=== PATIENT | female | born 1930 | race Caucasian/White ===

== ENCOUNTER 2020-08-14 19:24 | Inpatient (IN) ==
--- NOTE | 2020-08-14 19:35 | Emergency Department Note ---
Lower Extremity Injury HPI General Chief Complaint: Extremity Injury, Lower Stated Complaint: hip fracture History of Present Illness HPI Narrative: Narrative: Related Data Allergies Allergy/AdvReac Type Severity Reaction Status Date / Time Penicillins Allergy Unknown Verified 08/14/20 19:27 Sulfa (Sulfonamide Allergy Unknown Verified 08/14/20 19:27 Antibiotics) tetracycline Allergy Unknown Verified 08/14/20 19:27 morphine AdvReac Intermediate Nausea Verified 08/14/20 19:27 Review of Systems ROS ROS Narrative: Narrative: PFSH Narrative Patient History Narrative: Narrative: 89-year-old female presents the emergency department complaining of a left hip fracture. Patient does have a left femoral neck fracture which is displaced. Patient was seen at [facility] and then transferred here has been accepted by the orthopedic surgeon as well as the hospitalist but patient needs to get seen here because it was a trauma. Apparently the patient fell 7 days ago and is complaining of left hip pain. She is on a blood thinners. Does have history of aortic stenosis as well as hypertension is well controlled. Otherwise patient says that the pain is currently a 3 out of 10 worse with movement #pain all located to the hip. She did not hit her head did not lose consciousness during the fall. Medical/Surgical/Family History All Active Problems (Updated 08/14/20 @ 19:35 by Jose Partida DO) Fracture of femur (Acute) Exam Narrative Narrative: Narrative: Vital signs noted General: Awake. Alert. No distress. Skin: Warm. Dry. No rash. HEENT: NCAT. PERRL. EOMI. No conjunctivitis. No nystagmus. No pharyngitis. Membranes moist. No otitis. No rhinitis. Neck: No PTP. Good ROM. No meningeal signs. No stridor. No thyromegaly. No JVD. Cardiovascular: RRR. No murmur. No rubs. No gallops. Respiratory: No respiratory distress. Breath sounds equal. Lungs clear. Gastrointestinal: Abdomen soft. No tenderness. No distention. Normal bowel sounds. No palpable organomegaly or masses. Back: No deformity. No CVAT. Musculoskeletal: No tenderness. No swelling. No erythema. No edema. Good peripheral pulses x 4. Left lower extremity is externally rotated and shortened. Does have good pedal pulses. Does have decreased movement and range of motion secondary to the left hip fracture and pain. There is pain while palpating the left greater trochanter of the femur. Lymphatic: No palpable adenopathy. Neurological: No focal neurological deficits observed. CN 2-12 are intact. Good FTN. No pronator drift. Course Vital Signs Vital signs: Vital Signs Temperature 98.2 F 08/14/20 19:27 Pulse Rate 58 L 08/14/20 19:27 Respiratory Rate 18 08/14/20 19:27 Blood Pressure 176/81 08/14/20 19:27 Pulse Oximetry (%) 98 08/14/20 19:27 Temperature 98.2 F 08/14/20 19:27 Pulse Rate 58 L 08/14/20 19:27 Respiratory Rate 18 08/14/20 19:27 Blood Pressure 176/81 08/14/20 19:27 Pulse Oximetry (%) 98 08/14/20 19:27 MDM MDM Narrative Medical decision making narrative: Narrative: Based on CAT scan patient does have a left femoral neck fracture it is displaced. Patient does have good pedal pulses in the left lower extremity and good sensation does have full range of motion of the feet and knee. Patient pain is fairly under control at this time. They did do CBC and a BMP which is normal at the outside facility. I will add a PT/INR, chest x-ray EKG for presu rgical labs. Patient is planned to go to the OR tomorrow. I spoke with Dr. Cruz who agreed to admit the patient to the hospitalist service. Patient admitted in stable condition. Discharge Plan Patient/Caregiver Discharge Instructions Pt seen by VICE PRESIDENT PAYMENT/PA only: No Clinical Impression: Fracture of femur Qualifiers: Encounter type: initial encounter Femur location: base of neck Fracture type: closed Fracture alignment: displaced Laterality: left Qualified Code(s): S72.042A - Displaced fracture of base of neck of left femur, initial encounter for closed fracture Patient Disposition: Xfer As Inpt ([facility]) Condition: Good Follow up with: Mian Richmond PA-C [Primary Care Provider] -
[2020-08-14] MEDS ORDERED: fentaNYL 100 MCG/2 ML VIAL IV ONE (20:18)
[2020-08-14] MEDS ORDERED: ACETAMINOPHEN 325 MG TABLET PO PRN (20:28)
[2020-08-14] MEDS ORDERED: HYDROcodone/APAP 5/325MG TABLET PO PRN (20:28)
[2020-08-14] MEDS ORDERED: morphine 4 MG/ML VIAL IV PRN (20:28)
[2020-08-14] MEDS ORDERED: hydrALAZINE 20 MG/ML VIAL IV PRN (20:34)
--- NOTE | 2020-08-14 20:40 | Internal Med History&Physical ---
HPI History of Present Illness Patient information: Note initiated : 08/14/20 at 8:39 pm Service Date, if different from initiated Date: [] Patient: Rosaline Stuart 89 y/o F admitted on for hip fracture. Chief Complaint: [] History of present illness: Ms. Stuart is a 89 year old F with a past medical history of high blood pressure and history of aortic stenosis who was transferred to the ER from [facility] due to left leg pain. As per patient, who had a mechanical fall at home 6 days ago. He denies loss of consciousness. He did not have injury to her head. Denies nausea, vomiting, or headache at that time. Since the fall, she started to feel left hip pain. X- ray showed left femoral neck fracture it is displaced. When I saw this patient in the ER, she denied headache, dizziness, chest pain, shortness of breath, nausea, vomiting, abdominal pain, or dysuria. No change in vision. Review of Systems Review of systems: Positive for left hip pain. All other systems were reviewed and negative. PFSH PFSH All Active Problems Fracture of femur (Acute) Social History smoking status: Never smoker MEDS/ALLERGIES Home Medications and Allergies Home Medications Medication Instructions Recorded Confirmed Type amlodipine 5 mg PO QDAY 08/14/20 08/14/20 History ascorbic acid (vitamin C) 1 tab PO QDAY 08/14/20 08/14/20 History lisinopril 20 mg PO BID 08/14/20 08/14/20 History Allergies Allergy/AdvReac Type Severity Reaction Status Date / Time Penicillins Allergy Unknown Verified 08/14/20 19:27 Sulfa (Sulfonamide Allergy Unknown Verified 08/14/20 19:27 Antibiotics) tetracycline Allergy Unknown Verified 08/14/20 19:27 morphine AdvReac Intermediate Nausea Verified 08/14/20 19:27 EXAM Constitutional Vitals: Temp Pulse Resp BP Pulse Ox 98.2 F 61 18 160/86 100 08/14/20 19:27 08/14/20 20:17 08/14/20 19:27 08/14/20 20:17 08/14/20 20:17 Additional findings Additional findings: Physical exam: General: No acute distress Eye: EMOI, no conjunctival injection. HEENT: supple, no JVD or thyroid megaly Chest: No tenderness Heart: RRR, no gallop Lungs: Rhonchi bilateral Abdomen: Normal bowel sounds, soft, no tenderness Extremities: Left hip tenderness. Left lower extremity is externally rotated and shortened. Pulses symmetrical. Neurology: A+O x 3, no focal neurological deficits Psych: Normal mood DATA Data Completed and Pending Labs: Labs from last 24 hours 08/14/20 19:44 PT Pending INR Pending A/P Narrative A/P Narrative: Assessment: 1. fracture of left femur 2. HTN, uncontrolled 3. Mechanical fall at ground level 4. Hx of aortic stenosis Plan: 1. left femoral neck fracture it is displaced Orth consult NPO after midnight. She may have a procedure tomorrow 2. Continue home medication for blood pressure. Hydralazine as needed 3. Since patient had a mechanical fall. Denies loss of consciousness. No focal neurologic deficits. I would not like to order CT of head. Monitor 4. DVT prophylaxis: Heparin 5. CODE STATUS: Steel Fabricating Supervisor Spent With Patient Time: Total time spent is greater than 50% in coordination of care (as documented) at patient's floor/unit and/or counseling patient:
--- NOTE | 2020-08-14 20:50 | Event Note ---
Event Note Event Note: Parties in Attendance: Patient Pt's decisional Capacity: Yes POLST form completed: not I explained the process regarding CPR and intubation in details to the patient who agreed with CRP and intubation.
[2020-08-14 21:06] LABS: Prothrombin Time 13.4 sec (11.9-14.5)
[2020-08-14] MEDS ORDERED: HYDROmorphone 0.5 MG/0.5 ML SYRINGE IV PRN (21:16)
[2020-08-14] MEDS: 0.9 % SODIUM CHLORIDE 1,000 ML IV SCH (21:24)
[2020-08-14] MEDS: LISINOPRIL 20 MG TABLET PO SCH (22:23)
[2020-08-14] MEDS: DOCUSATE SODIUM 100 MG CAPSULE PO SCH (22:23)
[2020-08-14] MEDS: HEPARIN 5,000 UNIT/ML VIAL SQ SCH (22:26)
[2020-08-14] MEDS: 0.9 % SODIUM CHLORIDE 10 ML SYRINGE IV SCH (22:26)
[2020-08-14] MEDS: PROCHLORPERAZINE 10 MG/2 ML VIAL IV PRN (22:49)
[2020-08-15] MEDS ORDERED: HYDROmorphone 1 MG/ML SYRINGE IV PRN (00:37)
[2020-08-15] MEDS ORDERED: HYDROmorphone 1 MG/ML SYRINGE ONE ×2 (00:47→05:20)
--- NOTE | 2020-08-15 04:10 | XRay Report ---
CLINICAL INFORMATION: Chest pain COMPARISON: None. FINDINGS: Cardiomediastinal silhouette and pulmonary vessels are normal. Mild chronic bronchitis changes noted: there are no infiltrates or effusions. Severe degenerative changes in both acromioclavicular and glenohumeral joints incidentally noted. IMPRESSION: Chronic bronchitis. No acute findings Interpreted and Authenticated by: Sukhi May 08/15/20
[2020-08-15] MEDS: 0.9 % SODIUM CHLORIDE 10 ML SYRINGE IV SCH ×3 (05:14→20:45)
[2020-08-15] MEDS: PROCHLORPERAZINE 10 MG/2 ML VIAL IV PRN (06:17)
[2020-08-15] MEDS ORDERED: IPRATROPIUM/ALBUTEROL 3 ML AMPUL.NEB NEB PRN ×2 (07:00→11:29)
[2020-08-15] MEDS ORDERED: SCOPOLAMINE 1 PATCH PATCH TOPICAL PRN (07:00)
[2020-08-15 08:04] LABS: Basophils # (Auto) 0.02 K/mcL (0.00-0.20); Basophils % (Auto) 0.3 % (0.0-2.0); Eosinophils # (Auto) 0.01 K/mcL (0.00-0.70); Eosinophils % (Auto) 0.1 % (0.0-7.0); Hematocrit 38.6 % (36.0-48.0); Hemoglobin 12.4 g/dL (12.0-15.0); Lymphocytes # (Auto) 0.58 K/mcL (1.50-4.80); Lymphocytes % (Auto) 7.5 % (15.0-49.0); Mean Corpuscular HGB Conc 32.1 g/dL (31.0-36.0); Mean Platelet Volume 9.3 fL (7.4-10.4); Monocytes # (Auto) 0.49 K/mcL (0.10-0.90); Monocytes % (Auto) 6.4 % (1.0-12.0); Neutrophils % (Auto) 85.7 % (38.0-78.0); Platelet Count 291 K/mcL (140-440); RBC 4.24 M/mcL (4.00-5.20); Red Cell Distribution Width 13.6 % (11.5-14.5); WBC 7.7 K/mcL (4.5-11.0)
[2020-08-15 08:27] LABS: Blood Urea Nitrogen 19 mg/dL (8-23); Calcium 8.7 mg/dL (8.6-10.4); Carbon Dioxide 27 mmol/L (22-30); Chloride 97 mmol/L (96-108); Glomerular Filtration Rate 77; Glucose 143 mg/dL (70-105)
[2020-08-15] MEDS ORDERED: amLODIPine 5 MG TABLET PO SCH (09:00)
[2020-08-15] MEDS: amLODIPine 5 MG TABLET PO SCH (09:01)
[2020-08-15] MEDS: LISINOPRIL 20 MG TABLET PO SCH ×2 (09:01→20:38)
[2020-08-15] MEDS: HEPARIN 5,000 UNIT/ML VIAL SQ SCH ×2 (09:01→20:42)
[2020-08-15] MEDS: DOCUSATE SODIUM 100 MG CAPSULE PO SCH ×2 (09:01→20:38)
[2020-08-15] MEDS ORDERED: ceFAZolin 2 GM in DEXTROSE 5% IN WATER 50 ML IV SCH (09:45)
--- NOTE | 2020-08-15 10:07 | Brief Operative Note ---
Brief Operative Note Date of procedure: 08/15/20 Pre-op diagnosis: Left femoral neck fracture Post-op diagnosis: same Procedure: Left hip bipolar arthroplasty Grafts/Implants: Yes Findings: Femoral neck fracture, basicervical Complications: none Surgeon: Jake Sales Salvage Engineer: Brett Oliver Estimated blood loss (cc): 250 Specimens Removed/Pathology: none sent Condition: stable Disposition: PACU
[2020-08-15] MEDS ORDERED: PHENYLEPHRINE 10 MG/ML VIAL ONE (10:20)
[2020-08-15] MEDS ORDERED: DEXAMETHASONE 10 MG/ML VIAL ONE (10:20)
[2020-08-15] MEDS ORDERED: GLYCOPYRROLATE 0.2 MG/ML VIAL IV ONE (10:20)
[2020-08-15] MEDS ORDERED: TRANEXAMIC ACID 1,000 MG/10 ML VIAL IV ONE (10:20)
[2020-08-15] MEDS ORDERED: LIDOCAINE HCL/PF 100 MG/5 ML SYRINGE IV ONE (10:20)
[2020-08-15] MEDS ORDERED: ONDANSETRON 4 MG/2 ML VIAL ONE (10:20)
[2020-08-15] MEDS ORDERED: KETAMINE 100 MG/ML ML ONE (10:20)
[2020-08-15] MEDS ORDERED: PROPOFOL 200 MG/20 ML VIAL IV ONE (10:20)
[2020-08-15] MEDS ORDERED: ePHEDrine 50 MG/ML AMPUL IV ONE (10:20)
--- NOTE | 2020-08-15 10:22 | Operative Note ---
Operative Note Operative Note: Pre-operative diagnosis: Left hip fracture, low femoral neck I would like checking for room to see if there her position to be useful surgery beanbag postoperative diagnosis: Same Procedure: Left hip hemiarthroplasty Implants:Actis bipolar, 5 standard stem, 28/44mm head+5 Findings: basicervical extending partially into GT and medial calcar Complications: intraoperative GT FX Estimated Blood loss:200 Assist:Brett Jean Baptiste Clinical note: The patient continues to suffer from the above mentioned diagnosis. She had a fall and then was unable to ambulate. CT scan performed in the emergency department revealed a left femoral neck fracture. H&P: The patient was met outside the operating room and symptoms were reviewed and a physical exam performed. The patient demonstrated ongoing symptoms and signs as previously discussed. Risk versus benefits of the procedure were again discussed. Patient wished to proceed with the surgery aware and understanding of these risks. The operative site was marked. Patient was brought into the operating room and positioned in the usual fashion lateral with all bony prominences padded. Incision was made directly over the GT extending proximally and distally by approximately 10 cm. Incision was carried down through skin and then through IT band. Next the abductors were lifted in the usual 1/3-2/3 split fashion. Next the capsule was split. This revealed the fractured femoral head and neck in the acetabulum. The proximal aspect of the femur was then exposed using Hohmann retractors. During exposure a fracture occurred in the GT. It was felt this could be repaired satisfactorily at closure with a heavy FiberWire suture and therefore it was left for the time being. The remainder of neck was removed with an oscillating saw. Proximal aspect of the femur was opened a box osteotome. We then sequentially broached larger sizes until good fit within the femoral canal was achieved with the size noted above. A trial reduction was performed with a trial head. This reduced easily, provided equal leg lengths as measured on the knees through the drape, and was stable in flexion abduction and extension and external rotation. The trial was then dislocated. The wound and canal were thoroughly irrigated. The trial was exchanged with a definitive component. Again the hip was reduced. Stability and tension was again checked and found to be satisfactory, confirming that the hip did not dislocate in the legs leg lengths were equal. We then repaired the GT fracture using a tension band technique and #5 FiberWire sutures. The needle was passed through bone allowing good approximation and a solid repair of the GT fracture. The capsule was then closed with a #2 FiberWire. The abductors were repaired as well to the remaining cuff tendon on the femur. A sterile dressing was applied. The patient was brought to the PACU in good condition. Dressing can be changed to aquacel when dry and removed in 7 days. F/u 10-[address] Sales for wound check and suture removal. I will ask her to limit WB to 50% and avoid active abduction until follow.
[2020-08-15] MEDS ORDERED: GENTAMICIN SULFATE 800 MG/20 ML VIAL IR ONE (10:45)
[2020-08-15] MEDS ORDERED: LABETALOL 5 MG/ML ML IV PRN (11:29)
[2020-08-15] MEDS ORDERED: METHOCARBAMOL 1,000 MG/10 ML VIAL IV PRN (11:29)
[2020-08-15] MEDS ORDERED: fentaNYL 100 MCG/2 ML VIAL IV PRN (11:29)
[2020-08-15] MEDS ORDERED: NALOXONE HCL 0.4 MG/ML VIAL IV PRN (11:29)
[2020-08-15] MEDS ORDERED: METOPROLOL TARTRATE 5 MG/5 ML VIAL IV PRN (11:29)
[2020-08-15] MEDS ORDERED: LACTATED RINGERS 250 ML IV PRN (11:29)
[2020-08-15] MEDS ORDERED: ACETAMINOPHEN 700 MG/70 ML BAG IV ONE (11:29)
[2020-08-15] MEDS ORDERED: LACTATED RINGERS 1,000 ML IV SCH (11:30)
[2020-08-15] MEDS ORDERED: BENZOCAINE/MENTHOL 1 LOZENGE PO PRN (11:51)
[2020-08-15] MEDS ORDERED: ONDANSETRON 4 MG/2 ML VIAL IV PRN (11:51)
[2020-08-15] MEDS ORDERED: POLYETHYLENE GLYCOL 3350 17 GM PACKET PO PRN (11:51)
[2020-08-15] MEDS ORDERED: FLEETS ADULT ENEMA PR PRN (11:51)
[2020-08-15] MEDS ORDERED: BISACODYL 10 MG SUPP.RECT PR PRN (11:51)
[2020-08-15] MEDS ORDERED: MAGNESIUM HYDROXIDE 30 ML ORAL.SUSP PO PRN (11:51)
--- NOTE | 2020-08-15 11:51 | Brief Operative Note ---
Brief Operative Note Date of procedure: 08/15/20 Pre-op diagnosis: Left femoral neck fx Post-op diagnosis: same Procedure: Left hip mar arthroplasty Grafts/Implants: Yes Anesthesia: GETA Findings: Fx extended into GT and near LT Complications: other Complications Description: GT fracture fixed with heavy fiberwire in tension band technique Surgeon: Jake Sales Refinery Operator Helper Cracking Unit: Brett Oliver Estimated blood loss (cc): 200 Specimens Removed/Pathology: none sent Condition: stable Disposition: PACU
[2020-08-15] MEDS ORDERED: IBUPROFEN 200 MG TABLET PO PRN (12:20)
--- NOTE | 2020-08-15 12:25 | XRay Report ---
CLINICAL INFORMATION: Post-Op Total Hip COMPARISON: None. FINDINGS: Left hip prostheses is anatomically aligned. No osseous abnormalities. Older right total hip prostheses is anatomically aligned without loosening or infection. IMPRESSION: Left hip prostheses is anatomically aligned Interpreted and Authenticated by: Sukhi May 08/15/20
[2020-08-15] MEDS: 0.9 % SODIUM CHLORIDE 1,000 ML IV SCH ×2 (13:11→15:17)
[2020-08-15] MEDS ORDERED: 0.9 % SODIUM CHLORIDE 10 ML SYRINGE IV SCH (14:00)
[2020-08-15] MEDS: HYDROCODONE/APAP 7.5/325MG TABLET PO PRN ×2 (15:21→20:37)
[2020-08-15] MEDS: ACETAMINOPHEN 325 MG TABLET PO PRN (17:48)
[2020-08-15] MEDS: ceFAZolin 1 GM VIAL IV SCH (17:49)
--- NOTE | 2020-08-15 19:47 | Internal Med Progress Note ---
SUBJECTIVE Subjective Patient information: Note initiated : 08/15/20 at 7:44 pm Service Date, if different from initiated Date: [] Patient: Rosaline Stuart 89 y/o F admitted on 08/14/20 for hip fracture. Chief Complaint: [] Ms. Stuart is a 89 year old F with a past medical history of high blood pressure and history of aortic stenosis who was transferred to the ER from [facility] due to left leg pain. As per patient, who had a mechanical fall at home 6 days ago. He denies loss of consciousness. He did not have injury to her head. Denies nausea, vomiting, or headache at that time. Since the fall, she started to feel left hip pain. X-ray showed left femoral neck fracture it i s displaced. When I saw this patient in the ER, she denied headache, dizziness, chest pain, shortness of breath, nausea, vomiting, abdominal pain, or dysuria. No change in vision. 08/15 Patient does not have any new complaints. Pain is controlled Patient underwent Left hip mar arthroplasty by Dr. Sales on 08/15/20 Review of Systems Review of systems: Positive for left hip pain. All other systems were reviewed and negative. Constitutional Vitals: Vital Signs Temp Pulse Resp BP Pulse Ox 97.4 F 66 16 132/78 99 08/15/20 16:00 08/15/20 16:00 08/15/20 16:00 08/15/20 16:00 08/15/20 16:00 Period Temp Pulse Resp BP Sys/Wren Pulse Ox Last 24 Hr 96.7 F-98.2 F 50-97 8-24 96-171/43-86 94-100 Intake and Output 08/15/20 08/15/20 08/15/20 05:59 13:59 21:59 Intake Total 200 1670 240 Output Total 950 Balance 200 720 240 Weight 46.72 kg 46.72 kg Patient Weight 08/16/20 05:59 Weight 46.72 kg Intake & Output: Intake & Output 08/15/20 08/15/20 08/15/20 05:59 13:59 21:59 Intake Total 200 1670 240 Output Total 950 Balance 200 720 240 Weight 46.72 kg 46.72 kg Intake: IV 70 Oral 200 240 IV - Manual Only 1600 Output: Urine Catheter Amount 400 Void Amount 400 Emesis 50 Estimated Blood Loss 100 Other: Urine Appearance Clear 3-way Urethral Clear Urine Color Bright Yellow 3-way Urethral Pale Additional findings Additional findings: Physical exam: General: No acute distress Eye: EMOI, no conjunctival injection. HEENT: supple, no JVD or thyroid megaly Chest: No tenderness Heart: RRR, no gallop Lungs: Rhonchi bilateral Abdomen: Normal bowel sounds, soft, no tenderness Extremities: Left hip covered by dressing which is dry Neurology: A+O x 3, no focal neurological deficits Psych: Normal mood OBJ DATA Labs CBC & Chem 7: 08/15/20 07:35 08/15/20 07:35 Labs: Abnormal Lab Results 08/15/20 08/15/20 07:35 07:35 Neut % (Auto) 85.7 H Lymph % (Auto) 7.5 L Lymph # (Auto) 0.58 L Glucose 143 H Meds: Medications Acetaminophen (Tylenol) 650 mg PO Q6HP PRN; Protocol PRN Reason: Per Pain Protocol/Fever > 101 Last Admin: 08/15/20 17:48 Dose: 650 mg Documented by: Hydrocodone Bitart/Acetaminophen (Kennedy 7.5/325mg) 1 - 2 tab PO Q4HP PRN; Protocol PRN Reason: Per Pain Protocol Last Admin: 08/15/20 15:21 Dose: 2 tab Documented by: Amlodipine Besylate (Norvasc) 7.5 mg PO QDAY [facility] Last Admin: 08/15/20 09:01 Dose: Not Given Documented by: Bisacodyl (Dulcolax) 10 mg SC Q2-3DAYS PRN PRN Reason: Constipation Cefazolin Sodium (Ancef) 2 gm IV Q8H [facility]; Protocol Stop: 08/16/20 02:01 Last Admin: 08/15/20 17:49 Dose: 2 gm Documented by: Docusate Sodium (Colace) 100 mg PO BID [facility] Last Admin: 08/15/20 09:01 Dose: Not Given Documented by: Heparin Sodium (Porcine) (Heparin) 5,000 unit SQ Q12 [facility] Last Admin: 08/15/20 09:01 Dose: Not Given Documented by: Hydralazine HCl (Apresoline) 10 mg IV Q4-6HP PRN PRN Reason: Hypertension Hydromorphone HCl (Dilaudid) 1 mg IV Q4HP PRN; Protocol PRN Reason: Per Pain Protocol Sodium Chloride (Sodium Chloride 0.9%) 1,000 mls @ 75 mls/hr IV .[id number] [facility] Last Admin: 08/15/20 13:11 Dose: 75 mls/hr Documented by: Ibuprofen (Motrin) 400 mg PO Q6HP PRN; Protocol PRN Reason: Per Pain Protocol Lisinopril (Zestril) 20 mg PO BID [facility] Last Admin: 08/15/20 09:01 Dose: Not Given Documented by: Magnesium Hydroxide (Milk Of Magnesia) 30 ml PO BIDP PRN PRN Reason: Constipation Methocarbamol (Robaxin) 750 mg IV Q6HP PRN PRN Reason: Muscle Spasm Ondansetron HCl (Zofran) 4 mg IV Q4HP PRN; Protocol PRN Reason: Nausea And Vomiting Polyethylene Glycol (Miralax) 17 gm PO DAILYP PRN PRN Reason: Constipation Prochlorperazine (Compazine) 5 mg IV Q6HP PRN PRN Reason: Nausea And Vomiting Last Admin: 08/15/20 06:17 Dose: 5 mg Documented by: Scopolamine (Transderm-Scop) 1 patch TOPICAL PREOP PRN PRN Reason: Nausea And Vomiting Stop: 08/15/20 23:59 Last Admin: 08/15/20 09:01 Dose: 1 patch Documented by: Shona (Senokot) 2 tab PO HS [facility] Sodium Biphosphate/Sodium Phosphate (Fleets Adult) 1 dose SC Q3-4DAYS PRN PRN Reason: Constipation Sodium Chloride (Saline Flush) 10 ml IV Q8 [facility] Last Admin: 08/15/20 14:32 Dose: Not Given Documented by: Temazepam (Restoril) 15 mg PO HSP PRN PRN Reason: Insomnia Throat Lozenges (Cepacol) 1 lozenge PO PRN PRN PRN Reason: Sore Throat A/P Narrative A/P Narrative: 1. fracture of left femur 2. HTN, uncontrolled 3. Mechanical fall at ground level 4. Hx of aortic stenosis Plan: 1. Left hip mar arthroplasty by Dr. Sales on 08/15/20 Postop management including pain control and DVT prophylaxis by Orth team 2. Continue home medication for blood pressure. Hydralazine as needed 3. Since patient had a mechanical fall. Denies loss of consciousness. No foc al neurologic deficits. I would not like to order CT of head. Monitor 4. DVT prophylaxis: Heparin 5. CODE STATUS: Neonatal Pediatric Nurse Spent With Patient Time: Total time spent is greater than 50% in coordination of care (as gali charles) at patient's floor/unit and/or counseling patient: QUALITY VTE Deep Vein Thrombosis/Pulmonary Embolism Present on Admission: No
[2020-08-15] MEDS: SENNOSIDES 1 TABLET PO SCH (20:38)
[2020-08-15] MEDS ORDERED: DOCUSATE SODIUM 100 MG CAPSULE PO SCH (21:00)
[2020-08-15] MEDS ORDERED: TEMAZEPAM 15 MG CAPSULE PO PRN (21:00)
[2020-08-16] MEDS: ceFAZolin 1 GM VIAL IV SCH (02:48)
[2020-08-16] MEDS: 0.9 % SODIUM CHLORIDE 1,000 ML IV SCH ×2 (02:49→14:27)
[2020-08-16] MEDS: METHOCARBAMOL 1,000 MG/10 ML VIAL IV PRN (03:26)
[2020-08-16 07:19] LABS: Hematocrit 32.7 % (36.0-48.0); Hemoglobin 10.5 g/dL (12.0-15.0)
[2020-08-16 07:52] LABS: Prothrombin Time 13.2 sec (11.9-14.5)
[2020-08-16] MEDS: HYDROCODONE/APAP 7.5/325MG TABLET PO PRN ×3 (08:37→20:26)
[2020-08-16] MEDS: DOCUSATE SODIUM 100 MG CAPSULE PO SCH ×2 (08:39→20:26)
[2020-08-16] MEDS: HEPARIN 5,000 UNIT/ML VIAL SQ SCH (08:39)
[2020-08-16] MEDS: LISINOPRIL 20 MG TABLET PO SCH ×2 (08:40→20:26)
[2020-08-16] MEDS: amLODIPine 5 MG TABLET PO SCH (08:40)
[2020-08-16] MEDS: 0.9 % SODIUM CHLORIDE 10 ML SYRINGE IV SCH ×3 (08:42→20:27)
[2020-08-16] MEDS ORDERED: ENOXAPARIN 40 MG/0.4 ML SYRINGE SQ SCH (09:00)
--- NOTE | 2020-08-16 11:43 | Discharge Plan ---
Discharge Instructions - NAZANIN Patient Instructions Total Hip Protocol: Follow activity instructions as provided by Physical Therapy. Discharge Plan Patient/Caregiver Discharge Instructions Activity: ambulate only with your walker, as per physical therapy and other Diet: Regular Diet Activity Restrictions/Additional Instructions: 50% weight bearing x 6 weeks, avoid abductive abduction Prescriptions: New hydrocodone-acetaminophen [[place]] 7.5-325 mg tablet 1 - 2 tab PO Q4-6HP PRN (Reason: pain) Qty: 50 RF: 0 hydrocodone-acetaminophen 7.5-325 mg Tablet 1 - 2 tab PO Q4HP PRN (Reason: Per Pain Protocol) Qty: 60 RF: 0 docusate sodium 100 mg Capsule 100 mg PO BID Qty: 60 RF: 0 aspirin [Ecotrin] 325 mg tablet,delayed release (DR/EC) 325 mg PO BID Qty: 60 RF: 0 No Action lisinopril 20 mg tablet 20 mg PO BID RF: 0 amlodipine 5 mg tablet 5 mg PO HS RF: 0 ascorbic acid (vitamin C) 1 tab PO QDAY RF: 0 Other Ambulatory Orders: Physical Therapy DC - NAZANIN (Routine) Location: None Selected Ordered By: Otoniel Le Toilet Riser Discharge Order (ONCE) Location: None Selected Ordered By: Otoniel Le Walker (ONCE) Location: None Selected Ordered By: Otoniel Le Follow Up Plan Follow up with: Jake Sales MD [Physician] - Mian Richmond PA-C [Primary Care Provider] - Patient Disposition: Xfer SNF Prognosis: Good Rehab Potential: Good I certify that the patient requires SNF services: Yes Overall status at discharge: patient is progressing back to baseline Discharge Orders: Discharge Order (Routine); Ordered 08/18/20 Ordered By: Otoniel Le
--- NOTE | 2020-08-16 11:57 | Orthopedic Progress Note ---
SUBJECTIVE Subjective Patient information: Note initiated : 08/16/20 at 11:56 am Service Date, if different from initiated Date: [] Patient: Rosaline Stuart 89 y/o F admitted on 08/14/20 for hip fracture. Chief Complaint: [Pt is stable this morning on post operative day without any significant concerns or complaints. Patients vital signs have remained stable. Patients dressing is dry and is grossly intact from a neurovascular and motor standpoint. Patients 10 point ROS is otherwise negative. ] Constitutional Vitals: Vital Signs Temp Pulse Resp BP Pulse Ox 98.8 F 83 18 128/66 95 08/16/20 11:44 08/16/20 11:44 08/16/20 11:44 08/16/20 11:44 08/16/20 11:44 Period Temp Pulse Resp BP Sys/Wren Pulse Ox Last 24 Hr 96.7 F-98.8 F 60-97 8-24 96-148/43-83 95-100 Intake and Output 08/15/20 08/16/20 08/16/20 21:59 05:59 13:59 Intake Total 240 1800 480 Output Total 1800 900 Balance 240 0 -420 Weight 106 lb Intake & Output: Intake & Output 08/15/20 08/16/20 08/16/20 21:59 05:59 13:59 Intake Total 240 1800 480 Output Total 1800 900 Balance 240 0 -420 Weight 106 lb Intake: IV 1000 Sodium Chloride 0.9% 1,000 ml @ 1000 75 mls/hr IV .[id number] [facility] Rx#: [id number] Oral 240 800 480 Output: Urine Catheter Amount 1800 900 Other: Meal Breakfast Percent of Meal Consumed 100% Feeding Ability Independent Urine Appearance Clear Clear 3-way Urethral Clear Urine Color Straw Straw 3-way Urethral Pale Extremities Exam Extremities exam: Present normal inspection, Foot pink and warm and neurovascular intact OBJ DATA Labs CBC & Chem 7: 08/16/20 04:11 08/15/20 07:35 Labs: Abnormal Lab Results 08/16/20 08/15/20 08/15/20 04:11 07:35 07:35 Hgb 10.5 L Hct 32.7 L Neut % (Auto) 85.7 H Lymph % (Auto) 7.5 L Lymph # (Auto) 0.58 L Glucose 143 H Meds: Medications Acetaminophen (Tylenol) 650 mg PO Q6HP PRN; Protocol PRN Reason: Per Pain Protocol/Fever > 101 Last Admin: 08/15/20 17:48 Dose: 650 mg Documented by: Hydrocodone Bitart/Acetaminophen ([place] 7.5/325mg) 1 - 2 tab PO Q4HP PRN; Protocol PRN Reason: Per Pain Protocol Last Admin: 08/16/20 08:37 Dose: 2 tab Documented by: Amlodipine Besylate (Norvasc) 7.5 mg PO QDAY [facility] Last Admin: 08/16/20 08:40 Dose: 7.5 mg Documented by: Bisacodyl (Dulcolax) 10 mg [place] Q2-3DAYS PRN PRN Reason: Constipation Docusate Sodium (Colace) 100 mg PO BID [facility] Last Admin: 08/16/20 08:39 Dose: 100 mg Documented by: Enoxaparin Sodium (Lovenox) 40 mg SQ DAILY [facility] Hydralazine HCl (Apresoline) 10 mg IV Q4-6HP PRN PRN Reason: Hypertension Hydromorphone HCl (Dilaudid) 1 mg IV Q4HP PRN; Protocol PRN Reason: Per Pain Protocol Sodium Chloride (Sodium Chloride 0.9%) 1,000 mls @ 75 mls/hr IV .[id number] [facility] Last Infusion: 08/16/20 02:49 Dose: Infused Documented by: Ibuprofen (Motrin) 400 mg PO Q6HP PRN; Protocol PRN Reason: Per Pain Protocol Lisinopril (Zestril) 20 mg PO BID [facility] Last Admin: 08/16/20 08:40 Dose: 20 mg Documented by: Magnesium Hydroxide (Milk Of Magnesia) 30 ml PO BIDP PRN PRN Reason: Constipation Methocarbamol (Robaxin) 750 mg IV Q6HP PRN PRN Reason: Muscle Spasm Last Admin: 08/16/20 03:26 Dose: 750 mg Documented by: Ondansetron HCl (Zofran) 4 mg IV Q4HP PRN; Protocol PRN Reason: Nausea And Vomiting Polyethylene Glycol (Miralax) 17 gm PO DAILYP PRN PRN Reason: Constipation Prochlorperazine (Compazine) 5 mg IV Q6HP PRN PRN Reason: Nausea And Vomiting Last Admin: 08/15/20 06:17 Dose: 5 mg Documented by: Senna (Senokot) 2 tab PO HS [facility] Last Admin: 08/15/20 20:38 Dose: 2 tab Documented by: Sodium Biphosphate/Sodium Phosphate (Fleets Adult) 1 dose [place] Q3-4DAYS PRN PRN Reason: Constipation Sodium Chloride (Saline Flush) 10 ml IV Q8 [facility] Last Admin: 08/16/20 08:42 Dose: 10 ml Documented by: Temazepam (Restoril) 15 mg PO HSP PRN PRN Reason: Insomnia Throat Lozenges (Cepacol) 1 lozenge PO PRN PRN PRN Reason: Sore Throat A/P Narrative A/P Narrative: The patient has been educated regarding dressing care, Physical Therapy recommendations, home exercises, restrictions, and follow up appointments. The patient has had all necessary DME prescribed. The patient has remained relatively stable during their hospital course. Time Spent With Patient Time: Total time spent is greater than 50% in coordination of care (as documented) at patient's floor/unit and/or counseling patient: Total time spent with greater than 50% in coordination of care (as documented) at patient's floor/unit and/or counseling patient:: less than 15 minutes
--- NOTE | 2020-08-16 16:13 | Internal Med Progress Note ---
SUBJECTIVE Subjective Patient information: Note initiated : 08/16/20 at 4:09 pm Service Date, if different from initiated Date: [] Patient: Rosaline Sutart 89 y/o F admitted on 08/14/20 for hip fracture. Chief Complaint: [] Ms. Stuart is a 89 year old F with a past medical history of high blood pressure and history of aortic stenosis who was transferred to the ER from [facility] due to left leg pain. As per patient, who had a mechanical fall at home 6 days ago. He denies loss of consciousness. He did not have injury to her head. Denies nausea, vomiting, or headache at that time. Since the fall, she started to feel left hip pain. X-ray showed left femoral neck fracture it is displaced. When I saw this patient in the ER, she denied headache, dizziness, chest pain, shortness of breath, nausea, vomiting, abdominal pain, or dysuria. No change in vision. 08/15 Patient does not have any new complaints. Pain is controlled Patient underwent Left hip mar arthroplasty by Dr. Sales on 08/15/2008/16 Patient still complains of pain which is not well controlled. Will increase pain medication. Blood pressure is better controlled after amlodipine was increased to 7.5 daily Placement Review of Systems Review of systems: Positive for left hip pain. All other systems were reviewed and negative. Constitutional Vitals: Vital Signs Temp Pulse Resp BP Pulse Ox 98.2 F 62 16 105/60 95 08/16/20 15:48 08/16/20 15:48 08/16/20 15:48 08/16/20 15:48 08/16/20 15:48 Period Temp Pulse Resp BP Sys/Wren Pulse Ox Last 24 Hr 97.4 F-98.8 F 60-83 12-18 105-132/56-66 95-95 Intake and Output 08/16/20 08/16/20 08/16/20 05:59 13:59 21:59 Intake Total 1800 720 240 Output Total 1800 1675 Balance 0 -955 240 Intake & Output: Intake & Output 08/16/20 08/16/20 08/16/20 05:59 13:59 21:59 Intake Total 1800 720 240 Output Total 1800 1675 Balance 0 -955 240 Intake: IV 1000 Sodium Chloride 0.9% 1,000 ml @ 1000 75 mls/hr IV .[id number] [facility] Rx#: [id number] Oral 800 720 240 Output: Urine Catheter Amount 1800 1675 Other: Meal Lunch Lunch Percent of Meal Consumed 75% 75% Feeding Ability Independent Independent Urine Appearance Clear Clear 3-way Urethral Clear Urine Color Straw Pale 3-way Urethral Pale Additional findings Additional findings: Physical exam: General: No acute distress Eye: EMOI, no conjunctival injection. HEENT: supple, no JVD or thyroid megaly Chest: No tenderness Heart: RRR, no gallop Lungs: Rhonchi bilateral Abdomen: Normal bowel sounds, soft, no tenderness Extremities: Left hip covered by dressing which is dry Neurology: A+O x 3, no focal neurological deficits Psych: Normal mood OBJ DATA Labs CBC & Chem 7: 08/16/20 04:11 08/15/20 07:35 Labs: Abnormal Lab Results 08/16/20 08/15/20 08/15/20 04:11 07:35 07:35 Hgb 10.5 L Hct 32.7 L Neut % (Auto) 85.7 H Lymph % (Auto) 7.5 L Lymph # (Auto) 0.58 L Glucose 143 H Meds: Medications Acetaminophen (Tylenol) 650 mg PO Q6HP PRN; Protocol PRN Reason: Per Pain Protocol/Fever > 101 Last Admin: 08/15/20 17:48 Dose: 650 mg Documented by: Hydrocodone Bitart/Acetaminophen ([place] 7.5/325mg) 1 - 2 tab PO Q4HP PRN; Protocol PRN Reason: Per Pain Protocol Last Admin: 08/16/20 12:52 Dose: 2 tab Documented by: Amlodipine Besylate (Norvasc) 7.5 mg PO QDAY [facility] Last Admin: 08/16/20 08:40 Dose: 7.5 mg Documented by: Bisacodyl (Dulcolax) 10 mg [place] Q2-3DAYS PRN PRN Reason: Constipation Docusate Sodium (Colace) 100 mg PO BID [facility] Last Admin: 08/16/20 08:39 Dose: 100 mg Documented by: Enoxaparin Sodium (Lovenox) 40 mg SQ DAILY [facility] Hydralazine HCl (Apresoline) 10 mg IV Q4-6HP PRN PRN Reason: Hypertension Hydromorphone HCl (Dilaudid) 1 mg IV Q4HP PRN; Protocol PRN Reason: Per Pain Protocol Sodium Chloride (Sodium Chloride 0.9%) 1,000 mls @ 75 mls/hr IV .[id number] [facility] Last Admin: 08/16/20 14:27 Dose: Not Given Documented by: Ibuprofen (Motrin) 400 mg PO Q6HP PRN; Protocol PRN Reason: Per Pain Protocol Lisinopril (Zestril) 20 mg PO BID [facility] Last Admin: 08/16/20 08:40 Dose: 20 mg Documented by: Magnesium Hydroxide (Milk Of Magnesia) 30 ml PO BIDP PRN PRN Reason: Constipation Methocarbamol (Robaxin) 750 mg IV Q6HP PRN PRN Reason: Muscle Spasm Last Admin: 08/16/20 03:26 Dose: 750 mg Documented by: Ondansetron HCl (Zofran) 4 mg IV Q4HP PRN; Protocol PRN Reason: Nausea And Vomiting Polyethylene Glycol (Miralax) 17 gm PO DAILYP PRN PRN Reason: Constipation Prochlorperazine (Compazine) 5 mg IV Q6HP PRN PRN Reason: Nausea And Vomiting Last Admin: 08/15/20 06:17 Dose: 5 mg Documented by: Senna (Senokot) 2 tab PO HS [facility] Last Admin: 08/15/20 20:38 Dose: 2 tab Documented by: Sodium Biphosphate/Sodium Phosphate (Fleets Adult) 1 dose [place] Q3-4DAYS PRN PRN Reason: Constipation Sodium Chloride (Saline Flush) 10 ml IV Q8 [facility] Last Admin: 08/16/20 15:28 Dose: 10 ml Documented by: Temazepam (Restoril) 15 mg PO HSP PRN PRN Reason: Insomnia Throat Lozenges (Cepacol) 1 lozenge PO PRN PRN PRN Reason: Sore Throat A/P Narrative A/P Narrative: 1. fracture of left femur 2. HTN, uncontrolled 3. Mechanical fall at ground level 4. Hx of aortic stenosis Plan: 1. Left hip mar arthroplasty by Dr. Sales on 08/15/20 Postop management including pain control and DVT prophylaxis by Orth team 2. Increased amlodipine to 7.5 mg, continue other home medication for blood pressure. Hydralazine as needed 3. Since patient had a mechanical fall. Denies loss of consciousness. No focal neurologic deficits. I would not like to order CT of head. Monitor 4. DVT prophylaxis: Heparin Deposition: Placement Time Spent With Patient Time: Total time spent is greater than 50% in coordination of care (as documented) at patient's floor/unit and/or counseling patient: QUALITY VTE Deep Vein Thrombosis/Pulmonary Embolism Present on Admission: No
[2020-08-16] MEDS: SENNOSIDES 1 TABLET PO SCH (20:26)
[2020-08-16] MEDS ORDERED: TEMAZEPAM 15 MG CAPSULE PO PRN (21:00)
[2020-08-17] MEDS: 0.9 % SODIUM CHLORIDE 10 ML SYRINGE IV SCH ×3 (04:47→20:39)
[2020-08-17] MEDS: HYDROCODONE/APAP 7.5/325MG TABLET PO PRN ×3 (04:47→20:38)
[2020-08-17] MEDS: 0.9 % SODIUM CHLORIDE 1,000 ML IV SCH ×2 (04:48→19:40)
[2020-08-17 07:01] LABS: Basophils # (Auto) 0.03 K/mcL (0.00-0.20); Basophils % (Auto) 0.3 % (0.0-2.0); Eosinophils # (Auto) 0.12 K/mcL (0.00-0.70); Eosinophils % (Auto) 1.1 % (0.0-7.0); Hematocrit 32.3 % (36.0-48.0); Hemoglobin 10.7 g/dL (12.0-15.0); Lymphocytes # (Auto) 1.54 K/mcL (1.50-4.80); Lymphocytes % (Auto) 14.4 % (15.0-49.0); Mean Cell Volume 89.5 fL (80.0-100.0); Mean Corpuscular HGB Conc 33.1 g/dL (31.0-36.0); Monocytes # (Auto) 1.47 K/mcL (0.10-0.90); Monocytes % (Auto) 13.7 % (1.0-12.0); Neutrophils % (Auto) 70.5 % (38.0-78.0); Platelet Count 295 K/mcL (140-440); RBC 3.61 M/mcL (4.00-5.20); Red Cell Distribution Width 14.1 % (11.5-14.5); WBC 10.7 K/mcL (4.5-11.0)
[2020-08-17 07:32] LABS: ALT/SGPT 9 U/L (<40); AST/SGOT 25 U/L (<32); Albumin 2.9 gm/dL (3.2-5.2); Albumin/Globulin Ratio 1.1 (1.0-2.3); Alkaline Phosphatase 74 U/L (39-117); Bilirubin,Total 0.3 mg/dL (0.1-1.0); Blood Urea Nitrogen 15 mg/dL (8-23); Calcium 8.5 mg/dL (8.6-10.4); Carbon Dioxide 26 mmol/L (22-30); Chloride 104 mmol/L (96-108); Globulin 2.6 gm/dL (2.2-3.7); Glomerular Filtration Rate 77; Glucose 98 mg/dL (70-105)
[2020-08-17] MEDS: DOCUSATE SODIUM 100 MG CAPSULE PO SCH ×2 (08:32→20:38)
[2020-08-17] MEDS: ENOXAPARIN 40 MG/0.4 ML SYRINGE SQ SCH (08:32)
[2020-08-17] MEDS: LISINOPRIL 20 MG TABLET PO SCH ×2 (08:32→20:38)
[2020-08-17] MEDS: ACETAMINOPHEN 325 MG TABLET PO PRN (08:33)
[2020-08-17 08:41] LABS: Prothrombin Time 13.6 sec (11.9-14.5)
[2020-08-17] MEDS: amLODIPine 5 MG TABLET PO SCH (08:41)
--- NOTE | 2020-08-17 11:42 | Orthopedic Progress Note ---
SUBJECTIVE Subjective Patient information: Note initiated : 08/17/20 at 11:26 am Service Date, if different from initiated Date: [] Patient: Rosaline Stuart 89 y/o F admitted on 08/14/20 for hip fracture. Chief Complaint: [Left hip mar-arthroplasty] C/O pain with ambulation, otherwise doing well at baseline. O/E: comfortable in bed wound CDI Constitutional Vitals: Vital Signs Temp Pulse Resp BP Pulse Ox 98.8 F 61 16 117/64 98 08/17/20 07:14 08/17/20 07:14 08/17/20 07:14 08/17/20 07:14 08/17/20 07:14 Period Temp Pulse Resp BP Sys/Wren Pulse Ox Last 24 Hr 98.2 F-99.9 F 61-83 15-18 105-136/60-75 93-98 Intake and Output 08/16/20 08/17/20 08/17/20 21:59 05:59 13:59 Intake Total 1240 1000 Output Total 625 350 Balance 615 650 Weight 109 lb Intake & Output: Intake & Output 08/16/20 08/17/20 08/17/20 21:59 05:59 13:59 Intake Total 1240 1000 Output Total 625 350 Balance 615 650 Weight 109 lb Intake: Oral 1240 1000 Output: Urine Catheter Amount 625 Void Amount 350 Other: Meal Lunch Percent of Meal Consumed 75% Feeding Ability Independent Urine Appearance Clear Clear 3-way Urethral Clear Urine Color Pale Bright Yellow 3-way Urethral Pale Urine Odor Normal Normal OBJ DATA Labs CBC & Chem 7: 08/17/20 05:53 08/17/20 05:53 Labs: Abnormal Lab Results 08/17/20 08/17/20 08/16/20 05:53 05:53 04:11 RBC 3.61 L Hgb 10.7 L 10.5 L Hct 32.3 L 32.7 L Neut % (Auto) Lymph % (Auto) 14.4 L Bee % (Auto) 13.7 H Lymph # (Auto) Bee # (Auto) 1.47 H Glucose Calcium 8.5 L Total Protein 5.5 L Albumin 2.9 L 08/15/20 08/15/20 07:35 07:35 RBC Hgb Hct Neut % (Auto) 85.7 H Lymph % (Auto) 7.5 L Bee % (Auto) Lymph # (Auto) 0.58 L Bee # (Auto) Glucose 143 H Calcium Total Protein Albumin Meds: Medications Acetaminophen (Tylenol) 650 mg PO Q6HP PRN; Protocol PRN Reason: Per Pain Protocol/Fever > 101 Last Admin: 08/17/20 08:33 Dose: 650 mg Documented by: Hydrocodone Bitart/Acetaminophen ([place] 7.5/325mg) 1 tab PO Q6HP PRN; Protocol PRN Reason: Per Pain Protocol Last Admin: 08/17/20 04:47 Dose: 1 tab Documented by: Amlodipine Besylate (Norvasc) 7.5 mg PO QDAY [facility] Last Admin: 08/17/20 08:41 Dose: 7.5 mg Documented by: Bisacodyl (Dulcolax) 10 mg [place] Q2-3DAYS PRN PRN Reason: Constipation Docusate Sodium (Colace) 100 mg PO BID [facility] Last Admin: 08/17/20 08:32 Dose: 100 mg Documented by: Enoxaparin Sodium (Lovenox) 40 mg SQ DAILY [facility] Last Admin: 08/17/20 08:32 Dose: 40 mg Documented by: Hydralazine HCl (Apresoline) 10 mg IV Q4-6HP PRN PRN Reason: Hypertension Hydromorphone HCl (Dilaudid) 1 mg IV Q3HP PRN; Protocol PRN Reason: Per Pain Protocol Sodium Chloride (Sodium Chloride 0.9%) 1,000 mls @ 75 mls/hr IV .[id number] [facility] Last Admin: 08/17/20 04:48 Dose: Not Given Documented by: Lisinopril (Zestril) 20 mg PO BID [facility] Last Admin: 08/17/20 08:32 Dose: 20 mg Documented by: Magnesium Hydroxide (Milk Of Magnesia) 30 ml PO BIDP PRN PRN Reason: Constipation Methocarbamol (Robaxin) 750 mg IV Q6HP PRN PRN Reason: Muscle Spasm Last Admin: 08/16/20 03:26 Dose: 750 mg Documented by: Ondansetron HCl (Zofran) 4 mg IV Q4HP PRN; Protocol PRN Reason: Nausea And Vomiting Polyethylene Glycol (Miralax) 17 gm PO DAILYP PRN PRN Reason: Constipation Prochlorperazine (Compazine) 5 mg IV Q6HP PRN PRN Reason: Nausea And Vomiting Last Admin: 08/15/20 06:17 Dose: 5 mg Documented by: Senna (Senokot) 2 tab PO HS [facility] Last Admin: 08/16/20 20:26 Dose: Not Given Documented by: Sodium Biphosphate/Sodium Phosphate (Fleets Adult) 1 dose [place] Q3-4DAYS PRN PRN Reason: Constipation Sodium Chloride (Saline Flush) 10 ml IV Q8 [facility] Last Admin: 08/17/20 04:47 Dose: 10 ml Documented by: Temazepam (Restoril) 15 mg PO HSP PRN PRN Reason: Insomnia Throat Lozenges (Cepacol) 1 lozenge PO PRN PRN PRN Reason: Sore Throat A/P Narrative A/P Narrative: Imp: POD 2 left hip mar arthroplasty Overall implant in good position, fx of GT visible but not further displaced. Slow to mobilize, possibly secondary to GT fx Plan: D/C as per care team to appropriate facility 50% WB x 6 weeks. Avoid active abduction ASA 81mg PO BIDx 4 weeks for DVT prophylaxis F/U [address] Sales at [facility] for wound check and suture removal. Ortho signs off to hospitalist. Call if further concerns. Time Spent With Patient Time: Total time spent is greater than 50% in coordination of care (as documented) at patient's floor/unit and/or counseling patient:
--- NOTE | 2020-08-17 18:03 | Internal Med Progress Note ---
SUBJECTIVE Subjective Patient information: Note initiated : 08/17/20 at 6:00 pm Service Date, if different from initiated Date: [] Patient: Rosaline Stuart 89 y/o F admitted on 08/14/20 for hip fracture. Chief Complaint: [] Ms. Stuart is a 89 year old F with a past medical history of high blood pressure and history of aortic stenosis who was transferred to the ER from [facility] due to left leg pain. As per patient, who had a mechanical fall at home 6 days ago. He denies loss of consciousness. He did not have injury to her head. Denies nausea, vomiting, or headache at that time. Since the fall, she started to feel left hip pain. X-ray showed left femoral neck fracture it i s displaced. When I saw this patient in the ER, she denied headache, dizziness, chest pain, shortness of breath, nausea, vomiting, abdominal pain, or dysuria. No change in vision. 08/15 Patient does not have any new complaints. Pain is controlled Patient underwent Left hip mar arthroplasty by Dr. Sales on 08/15/2008/16 Patient still complains of pain which is not well controlled. Will increase pain medication. Blood pressure is better controlled after amlodipine was increased to 7.5 daily Placement 08/17 Pt still complains of pain. Otherwise she is fine. Denies fever/chills. Dr. Sales cleared to discharge her to SNF. Review of Systems Review of systems: Positive for left hip pain. All other systems were reviewed and negative. Constitutional Vitals: Vital Signs Temp Pulse Resp BP Pulse Ox 98.9 F 78 14 124/68 97 08/17/20 16:00 08/17/20 16:00 08/17/20 16:00 08/17/20 16:00 08/17/20 16:00 Period Temp Pulse Resp BP Sys/Wren Pulse Ox Last 24 Hr 98.6 F-99.9 F 61-78 14-16 114-136/63-75 93-98 Intake and Output 08/17/20 08/17/20 08/17/20 05:59 13:59 21:59 Intake Total 1000 620 480 Output Total 350 750 Balance 650 -130 480 Intake & Output: Intake & Output 08/17/20 08/17/20 08/17/20 05:59 13:59 21:59 Intake Total 1000 620 480 Output Total 350 750 Balance 650 -130 480 Intake: Oral 1000 620 480 Output: Urine Catheter Amount 750 Void Amount 350 Other: Meal Lunch Percent of Meal Consumed 100% Feeding Ability Independent Urine Appearance Clear Clear 3-way Urethral Clear Urine Color Bright Yellow Bright Yellow 3-way Urethral Bright Yellow Urine Odor Normal Normal Additional findings Additional findings: Physical exam: General: No acute distress Eye: EMOI, no conjunctival injection. HEENT: supple, no JVD or thyroid megaly Chest: No tenderness Heart: RRR, no gallop Lungs: Rhonchi bilateral Abdomen: Normal bowel sounds, soft, no tenderness Extremities: Left hip covered by dressing which is dry Neurology: A+O x 3, no focal neurological deficits Psych: Normal mood OBJ DATA Labs CBC & Chem 7: 08/17/20 05:53 08/17/20 05:53 Labs: Abnormal Lab Results 08/17/20 08/17/20 08/16/20 05:53 05:53 04:11 RBC 3.61 L Hgb 10.7 L 10.5 L Hct 32.3 L 32.7 L Neut % (Auto) Lymph % (Auto) 14.4 L [place] % (Auto) 13.7 H Lymph # (Auto) [place] # (Auto) 1.47 H Glucose Calcium 8.5 L Total Protein 5.5 L Albumin 2.9 L 08/15/20 08/15/20 07:35 07:35 RBC Hgb Hct Neut % (Auto) 85.7 H Lymph % (Auto) 7.5 L [place] % (Auto) Lymph # (Auto) 0.58 L [place] # (Auto) Glucose 143 H Calcium Total Protein Albumin Meds: Medications Acetaminophen (Tylenol) 650 mg PO Q6HP PRN; Protocol PRN Reason: Per Pain Protocol/Fever > 101 Last Admin: 08/17/20 08:33 Dose: 650 mg Documented by: Hydrocodone Bitart/Acetaminophen ([place] 7.5/325mg) 1 tab PO Q6HP PRN; Protocol PRN Reason: Per Pain Protocol Last Admin: 08/17/20 14:34 Dose: 1 tab Documented by: Amlodipine Besylate (Norvasc) 7.5 mg PO QDAY [facility] Last Admin: 08/17/20 08:41 Dose: 7.5 mg Documented by: Bisacodyl (Dulcolax) 10 mg [place] Q2-3DAYS PRN PRN Reason: Constipation Docusate Sodium (Colace) 100 mg PO BID [facility] Last Admin: 08/17/20 08:32 Dose: 100 mg Documented by: Enoxaparin Sodium (Lovenox) 40 mg SQ DAILY [facility] Last Admin: 08/17/20 08:32 Dose: 40 mg Documented by: Hydralazine HCl (Apresoline) 10 mg IV Q4-6HP PRN PRN Reason: Hypertension Hydromorphone HCl (Dilaudid) 1 mg IV Q3HP PRN; Protocol PRN Reason: Per Pain Protocol Sodium Chloride (Sodium Chloride 0.9%) 1,000 mls @ 75 mls/hr IV .[id number] [facility] Last Admin: 08/17/20 04:48 Dose: Not Given Documented by: Lisinopril (Zestril) 20 mg PO BID [facility] Last Admin: 08/17/20 08:32 Dose: 20 mg Documented by: Magnesium Hydroxide (Milk Of Magnesia) 30 ml PO BIDP PRN PRN Reason: Constipation Methocarbamol (Robaxin) 750 mg IV Q6HP PRN PRN Reason: Muscle Spasm Last Admin: 08/16/20 03:26 Dose: 750 mg Documented by: Ondansetron HCl (Zofran) 4 mg IV Q4HP PRN; Protocol PRN Reason: Nausea And Vomiting Polyethylene Glycol (Miralax) 17 gm PO DAILYP PRN PRN Reason: Constipation Last Admin: 08/17/20 14:13 Dose: 17 gm Documented by: Prochlorperazine (Compazine) 5 mg IV Q6HP PRN PRN Reason: Nausea And Vomiting Last Admin: 08/15/20 06:17 Dose: 5 mg Documented by: Senna (Senokot) 2 tab PO HS [facility] Last Admin: 08/16/20 20:26 Dose: Not Given Documented by: Sodium Biphosphate/Sodium Phosphate (Fleets Adult) 1 dose [place] Q3-4DAYS PRN PRN Reason: Constipation Sodium Chloride (Saline Flush) 10 ml IV Q8 [facility] Last Admin: 08/17/20 14:14 Dose: 10 ml Documented by: Temazepam (Restoril) 15 mg PO HSP PRN PRN Reason: Insomnia Throat Lozenges (Cepacol) 1 lozenge PO PRN PRN PRN Reason: Sore Throat A/P Narrative A/P Narrative: 1. fracture of left femur 2. HTN, uncontrolled 3. Mechanical fall at ground level 4. Hx of aortic stenosis Plan: 1. Left hip mar arthroplasty by Dr. Sales on 08/15/20 Postop management including pain control and DVT prophylaxis by Orth team 2. Increased amlodipine to 7.5 mg, continue other home medication for blood pressure. Hydralazine as needed 3. Since patient had a mechanical fall. Denies loss of consciousness. No focal neurologic deficits. I would not like to order CT of head. Monitor 4. DVT prophylaxis: Heparin. As per Dr. Sales, she will be discharged on aspirin 81mg bid for DVT prophylaxis. Deposition: awaiting for Placement, SNF Time Spent With Patient Time: Total time spent is greater than 50% in coordination of care (as documented) at patient's floor/unit and/or counseling patient: QUALITY VTE Deep Vein Thrombosis/Pulmonary Embolism Present on Admission: No
[2020-08-17] MEDS: SENNOSIDES 1 TABLET PO SCH (20:38)
[2020-08-18] MEDS: HYDROCODONE/APAP 7.5/325MG TABLET PO PRN ×2 (04:39→19:05)
[2020-08-18] MEDS: 0.9 % SODIUM CHLORIDE 10 ML SYRINGE IV SCH ×3 (04:40→20:28)
[2020-08-18] MEDS: 0.9 % SODIUM CHLORIDE 1,000 ML IV SCH ×2 (05:36→20:28)
[2020-08-18 07:04] LABS: Basophils # (Auto) 0.04 K/mcL (0.00-0.20); Basophils % (Auto) 0.3 % (0.0-2.0); Eosinophils # (Auto) 0.19 K/mcL (0.00-0.70); Eosinophils % (Auto) 1.6 % (0.0-7.0); Hematocrit 34.2 % (36.0-48.0); Hemoglobin 10.9 g/dL (12.0-15.0); Lymphocytes # (Auto) 1.19 K/mcL (1.50-4.80); Lymphocytes % (Auto) 9.8 % (15.0-49.0); Mean Cell Volume 92.4 fL (80.0-100.0); Mean Corpuscular HGB Conc 31.9 g/dL (31.0-36.0); Mean Platelet Volume 9.4 fL (7.4-10.4); Monocytes # (Auto) 1.31 K/mcL (0.10-0.90); Monocytes % (Auto) 10.8 % (1.0-12.0); Neutrophils % (Auto) 77.5 % (38.0-78.0); Platelet Count 323 K/mcL (140-440); Red Cell Distribution Width 14.5 % (11.5-14.5); WBC 12.2 K/mcL (4.5-11.0)
[2020-08-18 07:50] LABS: ALT/SGPT 9 U/L (<40); AST/SGOT 23 U/L (<32); Albumin 2.8 gm/dL (3.2-5.2); Alkaline Phosphatase 84 U/L (39-117); Bilirubin,Total 0.4 mg/dL (0.1-1.0); Blood Urea Nitrogen 15 mg/dL (8-23); Calcium 8.6 mg/dL (8.6-10.4); Carbon Dioxide 27 mmol/L (22-30); Chloride 99 mmol/L (96-108); Globulin 2.8 gm/dL (2.2-3.7); Glomerular Filtration Rate 81; Glucose 108 mg/dL (70-105)
[2020-08-18] MEDS: HYDROmorphone 1 MG/ML SYRINGE IV PRN (08:55)
[2020-08-18] MEDS: LISINOPRIL 20 MG TABLET PO SCH ×2 (08:55→20:28)
[2020-08-18] MEDS: ENOXAPARIN 40 MG/0.4 ML SYRINGE SQ SCH (08:55)
[2020-08-18] MEDS: amLODIPine 5 MG TABLET PO SCH (08:55)
[2020-08-18] MEDS: DOCUSATE SODIUM 100 MG CAPSULE PO SCH ×2 (08:56→20:28)
[2020-08-18 12:21] LABS: Appearance,Urine CLEAR (Clear); Bilirubin,Urine Negative (Negative); Color,Urine AMBER; Culture Indicated,Urine yes; Glucose,Urine (UA) Negative (Negative); Ketones,Urine 20 mg/dL (Negative); Leukocyte Esterase,Urine 75 /ug (Negative); Mucus,Urine MANY /hpf; Nitrate,Urine Negative (Negative); Protein,Urine 30 mg/dL (Negative); Specific Gravity,Urine 1.028 (1.000-1.035); Urine Blood Negative (Negative); Urine Hyaline Cast 36 /lph (0-2); Urine RBC 4 /hpf (0-3); Urine Squamous Epithelial Cell 0 /hpf (0-4); Urine WBC 12 /hpf (0-4); Urobilinogen,Urine Negative
--- NOTE | 2020-08-18 16:49 | Internal Med Progress Note ---
SUBJECTIVE Subjective Patient information: Note initiated : 08/18/20 at 4:45 pm Service Date, if different from initiated Date: [] Patient: Rosaline Stuart 89 y/o F admitted on 08/14/20 for hip fracture. Chief Complaint: [] Ms. Stuart is a 89 year old F with a past medical history of high blood pressure and history of aortic stenosis who was transferred to the ER from [facility] due to left leg pain. As per patient, who had a mechanical fall at home 6 days ago. He denies loss of consciousness. He did not have injury to her head. Denies nausea, vomiting, or headache at that time. Since the fall, she started to feel left hip pain. X-ray showed left femoral neck fracture it is displaced. When I saw this patient in the ER, she denied headache, dizziness, chest pain, shortness of breath, nausea, vomiting, abdominal pain, or dysuria. No change in vision. 08/15 Patient does not have any new complaints. Pain is controlled Patient underwent Left hip mar arthroplasty by Dr. Sales on 08/15/2008/16 Patient still complains of pain which is not well controlled. Will increase pain medication. Blood pressure is better controlled after amlodipine was increased to 7.5 daily Placement 08/17 Pt still complains of pain. Otherwise she is fine. Denies fever/chills. Dr. Sales cleared to discharge her to SNF. 08/18 When I saw this patient this morning, I asked her if she has a medical complaints. She replied "a lot". She stated that her right hip pain. I checked her right hip -there was no abnormality. No redness. No tenderness. Continue monitor Temperature 99.2, WBC 12.2 which was a 10.7, creatinine 0.6 -blood culture, urinalysis and chest x-ray Review of Systems Review of systems: Positive for left hip pain. All other systems were reviewed and negative. Constitutional Vitals: Vital Signs Temp Pulse Resp BP Pulse Ox 98.9 F 64 16 118/77 96 08/18/20 11:56 08/18/20 11:56 08/18/20 11:56 08/18/20 11:56 08/18/20 16:15 Period Temp Pulse Resp BP Sys/Wren Pulse Ox Last 24 Hr 98.7 F-99.2 F 62-67 15-20 111-129/71-77 94-96 Intake and Output 08/18/20 08/18/20 08/18/20 05:59 13:59 21:59 Intake Total 350 Output Total 750 Balance -400 Intake & Output: Intake & Output 08/18/20 08/18/20 08/18/20 05:59 13:59 21:59 Intake Total 350 Output Total 750 Balance -400 Intake: Oral 350 Output: Void Amount 750 Other: Urine Appearance Clear 3-way Urethral Clear Urine Color Bright Yellow 3-way Urethral Light [place] Urine Odor Normal Stool Size Large Moderate Stool Color Brown Brown Stool Consistency Loose Loose # Voids 1 # Bowel Movements 1 1 Additional findings Additional findings: Physical exam: General: No acute distress Eye: EMOI, no conjunctival injection. HEENT: supple, no JVD or thyroid megaly Chest: No tenderness Heart: RRR, no gallop Lungs: Rhonchi bilateral Abdomen: Normal bowel sounds, soft, no tenderness Extremities: Left hip covered by dressing which is dry Neurology: A+O x 3, no focal neurological deficits Psych: Normal mood OBJ DATA Labs CBC & Chem 7: 08/18/20 06:11 08/18/20 06:11 Labs: Abnormal Lab Results 08/18/20 08/18/20 08/18/20 11:21 06:11 06:11 WBC 12.2 H RBC 3.70 L Hgb 10.9 L Hct 34.2 L Lymph % (Auto) 9.8 L [place] % (Auto) Lymph # (Auto) 1.19 L [place] # (Auto) 1.31 H Absolute Neutrophils 9.43 H Glucose 108 H Calcium Total Protein 5.6 L Albumin 2.8 L Urine Protein 30 A Urine Ketones 20 A Ur Leukocyte Esterase 75 A Urine RBC 4 H Urine WBC 12 H Hyaline Casts 36 H Urine Mucus Many A 08/17/20 08/17/20 08/16/20 05:53 05:53 04:11 WBC RBC 3.61 L Hgb 10.7 L 10.5 L Hct 32.3 L 32.7 L Lymph % (Auto) 14.4 L [place] % (Auto) 13.7 H Lymph # (Auto) [place] # (Auto) 1.47 H Absolute Neutrophils Glucose Calcium 8.5 L Total Protein 5.5 L Albumin 2.9 L Urine Protein Urine Ketones Ur Leukocyte Esterase Urine RBC Urine WBC Hyaline Casts Urine Mucus Meds: Medications Acetaminophen (Tylenol) 650 mg PO Q6HP PRN; Protocol PRN Reason: Per Pain Protocol/Fever > 101 Last Admin: 08/17/20 08:33 Dose: 650 mg Documented by: Hydrocodone Bitart/Acetaminophen ([place] 7.5/325mg) 1 tab PO Q6HP PRN; Protocol PRN Reason: Per Pain Protocol Last Admin: 08/18/20 04:39 Dose: 1 tab Documented by: Amlodipine Besylate (Norvasc) 7.5 mg PO QDAY [facility] Last Admin: 08/18/20 08:55 Dose: 7.5 mg Documented by: Bisacodyl (Dulcolax) 10 mg UT Q2-3DAYS PRN PRN Reason: Constipation Docusate Sodium (Colace) 100 mg PO BID [facility] Last Admin: 08/18/20 08:56 Dose: Not Given Documented by: Enoxaparin Sodium (Lovenox) 40 mg SQ DAILY [facility] Last Admin: 08/18/20 08:55 Dose: 40 mg Documented by: Hydralazine HCl (Apresoline) 10 mg IV Q4-6HP PRN PRN Reason: Hypertension Hydromorphone HCl (Dilaudid) 1 mg IV Q3HP PRN; Protocol PRN Reason: Per Pain Protocol Last Admin: 08/18/20 08:55 Dose: 1 mg Documented by: Sodium Chloride (Sodium Chloride 0.9%) 1,000 mls @ 75 mls/hr IV .[id number] [facility] Last Admin: 08/18/20 05:36 Dose: Not Given Documented by: Lisinopril (Zestril) 20 mg PO BID [facility] Last Admin: 08/18/20 08:55 Dose: 20 mg Documented by: Magnesium Hydroxide (Milk Of Magnesia) 30 ml PO BIDP PRN PRN Reason: Constipation Methocarbamol (Robaxin) 750 mg IV Q6HP PRN PRN Reason: Muscle Spasm Last Admin: 08/16/20 03:26 Dose: 750 mg Documented by: Ondansetron HCl (Zofran) 4 mg IV Q4HP PRN; Protocol PRN Reason: Nausea And Vomiting Polyethylene Glycol (Miralax) 17 gm PO DAILYP PRN PRN Reason: Constipation Last Admin: 08/17/20 14:13 Dose: 17 gm Documented by: Prochlorperazine (Compazine) 5 mg IV Q6HP PRN PRN Reason: Nausea And Vomiting Last Admin: 08/15/20 06:17 Dose: 5 mg Documented by: Shona (Senokot) 2 tab PO HS [facility] Last Admin: 08/17/20 20:38 Dose: 2 tab Documented by: Sodium Biphosphate/Sodium Phosphate (Fleets Adult) 1 dose UT Q3-4DAYS PRN PRN Reason: Constipation Sodium Chloride (Saline Flush) 10 ml IV Q8 [facility] Last Admin: 08/18/20 14:33 Dose: 10 ml Documented by: Temazepam (Restoril) 15 mg PO HSP PRN PRN Reason: Insomnia Throat Lozenges (Cepacol) 1 lozenge PO PRN PRN PRN Reason: Sore Throat A/P Narrative A/P Narrative: A/P Narrative: 1. fracture of left femur 2. HTN, uncontrolled 3. Mechanical fall at ground level 4. Hx of aortic stenosis Plan: 1. Left hip mar arthroplasty by Dr. Sales on 08/15/20 Postop management including pain control and DVT prophylaxis by Orth team As per orth Dr. Sales, will discharge her on Aspirin 81mg bid for DVT prophylaxis 2. Continue d amlodipine to 7.5 mg, and other home medication for blood pressure. Hydralazine as needed 3. Since patient had a mechanical fall. Denies loss of consciousness. No focal neurologic deficits. I would not like to order CT of head. Monitor 4. DVT prophylaxis: Heparin. As per Dr. Sales, she will be discharged on aspirin 81mg bid for DVT prophylaxis. Deposition: awaiting for Placement, SNF Time Spent With Patient Time: Total time spent is greater than 50% in coordination of care (as documented) at patient's floor/unit and/or counseling patient: QUALITY VTE Deep Vein Thrombosis/Pulmonary Embolism Present on Admission: No
--- NOTE | 2020-08-18 17:09 | XRay Report ---
CLINICAL INFORMATION: leukocytosis COMPARISON: 08/14/2020 FINDINGS: Heart is borderline enlarged but stable. Mild thoracic aortic ectasia is also unchanged. The remaining mediastinum and pulmonary vessels are normal. A very small vague right midlung infiltrate may be developing. No effusions. IMPRESSION: Possible developing small vague right midlung infiltrate. Short-term radiographic follow-up in one to two days Interpreted and Authenticated by: Sukhi May 08/18/20
[2020-08-18] MEDS: METHOCARBAMOL 1,000 MG/10 ML VIAL IV PRN (19:06)
[2020-08-18] MEDS: SENNOSIDES 1 TABLET PO SCH (20:28)
[2020-08-19] MEDS: 0.9 % SODIUM CHLORIDE 10 ML SYRINGE IV SCH ×3 (04:19→20:16)
[2020-08-19 06:40] LABS: Basophils # (Auto) 0.04 K/mcL (0.00-0.20); Basophils % (Auto) 0.3 % (0.0-2.0); Eosinophils # (Auto) 0.24 K/mcL (0.00-0.70); Eosinophils % (Auto) 2.1 % (0.0-7.0); Hemoglobin 10.8 g/dL (12.0-15.0); Lymphocytes # (Auto) 1.46 K/mcL (1.50-4.80); Lymphocytes % (Auto) 12.5 % (15.0-49.0); Mean Cell Volume 93.6 fL (80.0-100.0); Mean Corpuscular HGB Conc 30.9 g/dL (31.0-36.0); Mean Platelet Volume 10.1 fL (7.4-10.4); Monocytes # (Auto) 1.15 K/mcL (0.10-0.90); Monocytes % (Auto) 9.9 % (1.0-12.0); Neutrophils % (Auto) 75.2 % (38.0-78.0); Platelet Count 336 K/mcL (140-440); RBC 3.74 M/mcL (4.00-5.20); Red Cell Distribution Width 14.4 % (11.5-14.5); WBC 11.7 K/mcL (4.5-11.0)
[2020-08-19 07:07] LABS: ALT/SGPT 10 U/L (<40); AST/SGOT 24 U/L (<32); Albumin 2.7 gm/dL (3.2-5.2); Albumin/Globulin Ratio 0.8 (1.0-2.3); Alkaline Phosphatase 90 U/L (39-117); Bilirubin,Total 0.4 mg/dL (0.1-1.0); Blood Urea Nitrogen 13 mg/dL (8-23); Calcium 8.7 mg/dL (8.6-10.4); Carbon Dioxide 26 mmol/L (22-30); Chloride 97 mmol/L (96-108); Globulin 3.2 gm/dL (2.2-3.7); Glomerular Filtration Rate 81; Glucose 106 mg/dL (70-105)
[2020-08-19] MEDS ORDERED: VANCOMYCIN PER PHARMACY IV SCH (08:32)
[2020-08-19] MEDS: DOCUSATE SODIUM 100 MG CAPSULE PO SCH ×2 (08:44→20:16)
[2020-08-19] MEDS: HYDROCODONE/APAP 7.5/325MG TABLET PO PRN ×3 (08:48→22:34)
[2020-08-19] MEDS: LISINOPRIL 20 MG TABLET PO SCH ×2 (08:48→20:16)
[2020-08-19] MEDS: amLODIPine 5 MG TABLET PO SCH (08:48)
[2020-08-19] MEDS: ENOXAPARIN 40 MG/0.4 ML SYRINGE SQ SCH (08:49)
[2020-08-19] MEDS ORDERED: LEVOFLOXACIN 750 MG/150 ML BAG IV SCH (10:00)
[2020-08-19] MEDS: VANCOMYCIN 750 MG in 0.9 % SODIUM CHLORIDE 250 ML IV SCH (10:16)
[2020-08-19] MEDS ORDERED: METHOCARBAMOL 750 MG TABLET PO PRN (11:55)
[2020-08-19] MEDS: SENNOSIDES 1 TABLET PO SCH (20:16)
--- NOTE | 2020-08-19 22:33 | Internal Med Progress Note ---
SUBJECTIVE Subjective Patient information: Note initiated : 08/19/20 at 10:32 pm Service Date, if different from initiated Date: [] Patient: Rosaline Stuart 89 y/o F admitted on 08/14/20 for hip fracture. Chief Complaint: [] Ms. Stuart is a 89 year old F with a past medical history of high blood pressure and history of aortic stenosis who was transferred to the ER from [facility] due to left leg pain. As per patient, who had a mechanical fall at home 6 days ago. He denies loss of consciousness. He did not have injury to her head. Denies nausea, vomiting, or headache at that time. Since the fall, she started to feel left hip pain. X-ray showed left femoral neck fracture it is displaced. When I saw this patient in the ER, she denied headache, dizziness, chest pain, shortness of breath, nausea, vomiting, abdominal pain, or dysuria. No change in vision. 08/15 Patient does not have any new complaints. Pain is controlled Patient underwent Left hip mar arthroplasty by Dr. Sales on 08/15/2008/16 Patient still complains of pain which is not well controlled. Will increase pain medication. Blood pressure is better controlled after amlodipine was increased to 7.5 daily Placement 08/17 Pt still complains of pain. Otherwise she is fine. Denies fever/chills. Dr. Sales cleared to discharge her to SNF. 08/18 When I saw this patient this morning, I asked her if she has a medical complaints. She replied "a lot". She stated that her right hip pain. I checked her right hip -there was no abnormality. No redness. No tenderness. Continue monitor Temperature 99.2, WBC 12.2 which was a 10.7, creatinine 0.6 -blood culture, urinalysis 08/19 She still complains of some pain from left hip. She has been having mild fever for the past two days. WBC mild elevated. CXR - Possible developing small vague right midlung infiltrate. Short term abv was started today Review of Systems Review of systems: Positive for left hip pain. All other systems were reviewed and negative. Constitutional Vitals: Vital Signs Temp Pulse Resp BP Pulse Ox 98.3 F 63 12 123/66 98 08/19/20 19:52 08/19/20 16:00 08/19/20 19:52 08/19/20 19:52 08/19/20 19:52 Period Temp Pulse Resp BP Sys/Wren Pulse Ox Last 24 Hr 97.6 F-99.5 F 55-64 12 104-123/64-75 94-99 Intake and Output 08/19/20 08/19/20 08/20/20 13:59 21:59 05:59 Intake Total 240 Output Total 500 Balance -260 Weight 49.487 kg Patient Weight 08/20/20 05:59 Weight 49.487 kg Intake & Output: Intake & Output 08/19/20 08/19/20 08/20/20 13:59 21:59 05:59 Intake Total 240 Output Total 500 Balance -260 Weight 49.487 kg Intake: Oral 240 Output: Void Amount 500 Other: Meal Dinner Percent of Meal Consumed 75% Additional findings Additional findings: Physical exam: General: No acute distress Eye: EMOI, no conjunctival injection. HEENT: supple, no JVD or thyroid megaly Chest: No tenderness Heart: RRR, no gallop Lungs: mild crackles over right field Abdomen: Normal bowel sounds, soft, no tenderness Extremities: Left hip covered by dressing which is dry Neurology: A+O x 3, no focal neurological deficits Psych: Normal mood OBJ DATA Labs CBC & Chem 7: 08/19/20 05:33 08/19/20 05:33 Labs: Abnormal Lab Results 08/19/20 08/19/20 08/18/20 05:33 05:33 11:21 WBC 11.7 H RBC 3.74 L Hgb 10.8 L Hct 35.0 L MCHC 30.9 L Lymph % (Auto) 12.5 L [place] % (Auto) Lymph # (Auto) 1.46 L [place] # (Auto) 1.15 H Absolute Neutrophils 8.76 H Glucose 106 H Calcium Total Protein Albumin 2.7 L Albumin/Globulin Ratio 0.8 L Urine Protein 30 A Urine Ketones 20 A Ur Leukocyte Esterase 75 A Urine RBC 4 H Urine WBC 12 H Hyaline Casts 36 H Urine Mucus Many A 08/18/20 08/18/20 08/17/20 06:11 06:11 05:53 WBC 12.2 H RBC 3.70 L Hgb 10.9 L Hct 34.2 L MCHC Lymph % (Auto) 9.8 L [place] % (Auto) Lymph # (Auto) 1.19 L [place] # (Auto) 1.31 H Absolute Neutrophils 9.43 H Glucose 108 H Calcium 8.5 L Total Protein 5.6 L 5.5 L Albumin 2.8 L 2.9 L Albumin/Globulin Ratio Urine Protein Urine Ketones Ur Leukocyte Esterase Urine RBC Urine WBC Hyaline Casts Urine Mucus 08/17/20 05:53 WBC RBC 3.61 L Hgb 10.7 L Hct 32.3 L MCHC Lymph % (Auto) 14.4 L [place] % (Auto) 13.7 H Lymph # (Auto) [place] # (Auto) 1.47 H Absolute Neutrophils Glucose Calcium Total Protein Albumin Albumin/Globulin Ratio Urine Protein Urine Ketones Ur Leukocyte Esterase Urine RBC Urine WBC Hyaline Casts Urine Mucus Meds: Medications Acetaminophen (Tylenol) 650 mg PO Q6HP PRN; Protocol PRN Reason: Per Pain Protocol/Fever > 101 Last Admin: 08/17/20 08:33 Dose: 650 mg Documented by: Hydrocodone Bitart/Acetaminophen ([place] 7.5/325mg) 1 tab PO Q6HP PRN; Protocol PRN Reason: Per Pain Protocol Last Admin: 08/19/20 12:58 Dose: 1 tab Documented by: Amlodipine Besylate (Norvasc) 7.5 mg PO QDAY [facility] Last Admin: 08/19/20 08:48 Dose: 7.5 mg Documented by: Bisacodyl (Dulcolax) 10 mg [place] Q2-3DAYS PRN PRN Reason: Constipation Docusate Sodium (Colace) 100 mg PO BID [facility] Last Admin: 08/19/20 20:16 Dose: Not Given Documented by: Enoxaparin Sodium (Lovenox) 40 mg SQ DAILY [facility] Last Admin: 08/19/20 08:49 Dose: 40 mg Documented by: Hydralazine HCl (Apresoline) 10 mg IV Q4-6HP PRN PRN Reason: Hypertension Hydromorphone HCl (Dilaudid) 1 mg IV Q3HP PRN; Protocol PRN Reason: Per Pain Protocol Last Admin: 08/18/20 08:55 Dose: 1 mg Documented by: Levofloxacin (Levaquin) 750 mg in 150 mls @ 100 mls/hr IV Q48H [facility] Last Admin: 08/19/20 10:16 Dose: 100 mls/hr Documented by: Vancomycin HCl 750 mg/ Sodium (Chloride) 250 mls @ 250 mls/hr IV DAILY [facility] Last Admin: 08/19/20 10:16 Dose: 250 mls/hr Documented by: Lisinopril (Zestril) 20 mg PO BID [facility] Last Admin: 08/19/20 20:16 Dose: 20 mg Documented by: Magnesium Hydroxide (Milk Of Magnesia) 30 ml PO BIDP PRN PRN Reason: Constipation Methocarbamol (Robaxin) 750 mg PO Q6HP PRN PRN Reason: Muscle Spasm Polyethylene Glycol (Miralax) 17 gm PO DAILYP PRN PRN Reason: Constipation Last Admin: 08/17/20 14:13 Dose: 17 gm Documented by: Prochlorperazine (Compazine) 5 mg IV Q6HP PRN PRN Reason: Nausea And Vomiting Last Admin: 08/15/20 06:17 Dose: 5 mg Documented by: Senna (Senokot) 2 tab PO HS [facility] Last Admin: 08/19/20 20:16 Dose: Not Given Documented by: Sodium Biphosphate/Sodium Phosphate (Fleets Adult) 1 dose [place] Q3-4DAYS PRN PRN Reason: Constipation Sodium Chloride (Saline Flush) 10 ml IV Q8 [facility] Last Admin: 08/19/20 20:16 Dose: 10 ml Documented by: Temazepam (Restoril) 15 mg PO HSP PRN PRN Reason: Insomnia Throat Lozenges (Cepacol) 1 lozenge PO PRN PRN PRN Reason: Sore Throat Vancomycin HCl (Vancomycin Per Pharmacy) 1 order IV UD [facility]; Protocol A/P Narrative A/P Narrative: 1. fracture of left femur 2. HTN, uncontrolled 3. Mechanical fall at ground level 4. Hx of aortic stenosis 5 HCA pneumonia? Plan: 1. Left hip mar arthroplasty by Dr. Sales on 08/15/20 Postop management including pain control and DVT prophylaxis by Orth team As per orth Dr. Sales, will discharge her on Aspirin 81mg bid for DVT pro phylaxis 2. Continue d amlodipine to 7.5 mg, and other home medication for blood pressure. Hydralazine as needed 3. Since patient had a mechanical fall. Denies loss of consciousness. No focal neurologic deficits. I would not like to order CT of head. Monitor 4. Vanco and levaquin were started today for possible HCA pneumonia 5. DVT prophylaxis: Heparin. As per Dr. Sales, she will be discharged on aspirin 81mg bid for DVT prophylaxis. Deposition: SNF Time Spent With Patient Time: Total time spent is greater than 50% in coordination of care (as documented) at patient's floor/unit and/or counseling patient: QUALITY VTE Deep Vein Thrombosis/Pulmonary Embolism Present on Admission: No
[2020-08-20] MEDS: HYDROmorphone 1 MG/ML SYRINGE IV PRN (01:36)
[2020-08-20] MEDS: 0.9 % SODIUM CHLORIDE 10 ML SYRINGE IV SCH ×3 (04:49→21:30)
[2020-08-20] MEDS: HYDROCODONE/APAP 7.5/325MG TABLET PO PRN ×3 (04:49→23:59)
--- NOTE | 2020-08-20 09:38 | Orthopedic Progress Note ---
SUBJECTIVE Subjective Patient information: Note initiated : 08/20/20 at 9:30 am Service Date, if different from initiated Date: [] Patient: Rosaline Stuart 89 y/o F admitted on 08/14/20 for hip fracture. Chief Complaint: [POD 5 Left hip hemiarthroplasty] Pt seen. Gradually improving. Nurse reports able to mobilize with help. Depressed mood. Endorses some pain but better than previous Constitutional Vitals: Vital Signs Temp Pulse Resp BP Pulse Ox 97.0 F 57 L 18 124/76 98 08/20/20 08:00 08/20/20 08:00 08/20/20 08:00 08/20/20 08:00 08/20/20 08:00 Period Temp Pulse Resp BP Sys/Wren Pulse Ox Last 24 Hr 97.0 F-98.3 F 55-64 - 104-129/64-76 95-99 Intake and Output 08/19/20 08/20/20 08/20/20 21:59 05:59 13:59 Intake Total 240 800 Output Total 500 Balance -260 800 Weight 109 lb 1.6 oz Intake & Output: Intake & Output 08/19/20 08/20/20 08/20/20 21:59 05:59 13:59 Intake Total 240 800 Output Total 500 Balance -260 800 Weight 109 lb 1.6 oz Intake: Oral 240 800 Output: Void Amount 500 Other: Meal Dinner Percent of Meal Consumed 75% Wound CDI NVI in feet Leg lengths roughly equal OBJ DATA Labs CBC & Chem 7: 08/19/20 05:33 08/19/20 05:33 Labs: Abnormal Lab Results 08/19/20 08/19/20 08/18/20 05:33 05:33 11:21 WBC 11.7 H RBC 3.74 L Hgb 10.8 L Hct 35.0 L MCHC 30.9 L Lymph % (Auto) 12.5 L Lymph # (Auto) 1.46 L [place] # (Auto) 1.15 H Absolute Neutrophils 8.76 H Glucose 106 H Total Protein Albumin 2.7 L Albumin/Globulin Ratio 0.8 L Urine Protein 30 A Urine Ketones 20 A Ur Leukocyte Esterase 75 A Urine RBC 4 H Urine WBC 12 H Hyaline Casts 36 H Urine Mucus Many A 08/18/20 08/18/20 06:11 06:11 WBC 12.2 H RBC 3.70 L Hgb 10.9 L Hct 34.2 L MCHC Lymph % (Auto) 9.8 L Lymph # (Auto) 1.19 L [place] # (Auto) 1.31 H Absolute Neutrophils 9.43 H Glucose 108 H Total Protein 5.6 L Albumin 2.8 L Albumin/Globulin Ratio Urine Protein Urine Ketones Ur Leukocyte Esterase Urine RBC Urine WBC Hyaline Casts Urine Mucus Meds: Medications Acetaminophen (Tylenol) 650 mg PO Q6HP PRN; Protocol PRN Reason: Per Pain Protocol/Fever > 101 Last Admin: 08/17/20 08:33 Dose: 650 mg Documented by: Hydrocodone Bitart/Acetaminophen ([place] 7.5/325mg) 1 tab PO Q6HP PRN; Protocol PRN Reason: Per Pain Protocol Last Admin: 08/20/20 04:49 Dose: 1 tab Documented by: Amlodipine Besylate (Norvasc) 7.5 mg PO QDAY [facility] Last Admin: 08/19/20 08:48 Dose: 7.5 mg Documented by: Bisacodyl (Dulcolax) 10 mg [place] Q2-3DAYS PRN PRN Reason: Constipation Docusate Sodium (Colace) 100 mg PO BID [facility] Last Admin: 08/19/20 20:16 Dose: Not Given Documented by: Enoxaparin Sodium (Lovenox) 40 mg SQ DAILY [facility] Last Admin: 08/19/20 08:49 Dose: 40 mg Documented by: Hydralazine HCl (Apresoline) 10 mg IV Q4-6HP PRN PRN Reason: Hypertension Hydromorphone HCl (Dilaudid) 1 mg IV Q3HP PRN; Protocol PRN Reason: Per Pain Protocol Last Admin: 08/20/20 01:36 Dose: 1 mg Documented by: Levofloxacin (Levaquin) 750 mg in 150 mls @ 100 mls/hr IV Q48H [facility] Last Admin: 08/19/20 10:16 Dose: 100 mls/hr Documented by: Vancomycin HCl 750 mg/ Sodium (Chloride) 250 mls @ 250 mls/hr IV DAILY [facility] Last Admin: 08/19/20 10:16 Dose: 250 mls/hr Documented by: Lisinopril (Zestril) 20 mg PO BID [facility] Last Admin: 08/19/20 20:16 Dose: 20 mg Documented by: Magnesium Hydroxide (Milk Of Magnesia) 30 ml PO BIDP PRN PRN Reason: Constipation Methocarbamol (Robaxin) 750 mg PO Q6HP PRN PRN Reason: Muscle Spasm Last Admin: 08/20/20 00:02 Dose: 750 mg Documented by: Polyethylene Glycol (Miralax) 17 gm PO DAILYP PRN PRN Reason: Constipation Last Admin: 08/17/20 14:13 Dose: 17 gm Documented by: Prochlorperazine (Compazine) 5 mg IV Q6HP PRN PRN Reason: Nausea And Vomiting Last Admin: 08/15/20 06:17 Dose: 5 mg Documented by: Senna (Senokot) 2 tab PO HS [facility] Last Admin: 08/19/20 20:16 Dose: Not Given Documented by: Sodium Biphosphate/Sodium Phosphate (Fleets Adult) 1 dose [place] Q3-4DAYS PRN PRN Reason: Constipation Sodium Chloride (Saline Flush) 10 ml IV Q8 [facility] Last Admin: 08/20/20 04:49 Dose: 10 ml Documented by: Temazepam (Restoril) 15 mg PO HSP PRN PRN Reason: Insomnia Throat Lozenges (Cepacol) 1 lozenge PO PRN PRN PRN Reason: Sore Throat Vancomycin HCl (Vancomycin Per Pharmacy) 1 order IV UD [facility]; Protocol A/P Narrative A/P Narrative: 5 day post L mar-hip Slow to mobilize but improving Discharge planning Ortho will remained signed off unless acute worsening F/U as per previous, 10-14 days post op, ASA 81mg PO BID x4 weeks for DVT, 50% WB only, avoid active ABduction, dressing off PO day 7. Time Spent With Patient Time: Total time spent is greater than 50% in coordination of care (as documented) at patient's floor/unit and/or counseling patient: Total time spent with greater than 50% in coordination of care (as documented) at patient's floor/unit and/or counseling patient:: 15 - 24 minutes
[2020-08-20 09:40] LABS: Basophils # (Auto) 0.03 K/mcL (0.00-0.20); Basophils % (Auto) 0.3 % (0.0-2.0); Eosinophils # (Auto) 0.14 K/mcL (0.00-0.70); Eosinophils % (Auto) 1.5 % (0.0-7.0); Hematocrit 31.7 % (36.0-48.0); Hemoglobin 10.1 g/dL (12.0-15.0); Lymphocytes # (Auto) 0.99 K/mcL (1.50-4.80); Lymphocytes % (Auto) 10.7 % (15.0-49.0); Mean Cell Volume 90.3 fL (80.0-100.0); Mean Corpuscular HGB Conc 31.9 g/dL (31.0-36.0); Mean Platelet Volume 9.5 fL (7.4-10.4); Monocytes # (Auto) 0.69 K/mcL (0.10-0.90); Monocytes % (Auto) 7.5 % (1.0-12.0); Platelet Count 391 K/mcL (140-440); RBC 3.51 M/mcL (4.00-5.20); Red Cell Distribution Width 14.2 % (11.5-14.5); WBC 9.2 K/mcL (4.5-11.0)
[2020-08-20] MEDS: DOCUSATE SODIUM 100 MG CAPSULE PO SCH ×2 (10:08→21:30)
[2020-08-20] MEDS: amLODIPine 5 MG TABLET PO SCH (10:09)
[2020-08-20] MEDS: ENOXAPARIN 40 MG/0.4 ML SYRINGE SQ SCH (10:09)
[2020-08-20] MEDS: LISINOPRIL 20 MG TABLET PO SCH ×2 (10:09→21:30)
[2020-08-20 10:34] LABS: ALT/SGPT 10 U/L (<40); AST/SGOT 17 U/L (<32); Albumin 2.8 gm/dL (3.2-5.2); Alkaline Phosphatase 83 U/L (39-117); Bilirubin,Direct < 0.2 mg/dL (<0.3); Bilirubin,Total 0.4 mg/dL (0.1-1.0); Blood Urea Nitrogen 13 mg/dL (8-23); Calcium 8.7 mg/dL (8.6-10.4); Carbon Dioxide 27 mmol/L (22-30); Chloride 97 mmol/L (96-108); Globulin 2.7 gm/dL (2.2-3.7); Glomerular Filtration Rate 81; Glucose 103 mg/dL (70-105); Lactate Dehydrogenase 182 U/L (135-225); Phosphorous 3.6 mg/dL (2.5-4.5); Triglycerides 77 mg/dL (<150); Uric Acid 3.7 mg/dL (2.5-8.0)
--- NOTE | 2020-08-20 12:31 | Internal Med Progress Note ---
SUBJECTIVE Subjective Patient information: Note initiated : 08/20/20 at 12:25 pm Service Date, if different from initiated Date: [] Patient: Rosaline Stuart 89 y/o F admitted on 08/14/20 for hip fracture. Chief Complaint: [] Interval history: Ms. Stuart is a 89 year old F with a past medical history of high blood pressure and history of aortic stenosis who was transferred to the ER from [facility] due to left leg pain. As per patient, who had a mechanical fall at home 6 days ago. He denies loss of consciousness. He did not have injury to her head. Denies nausea, vomiting, or headache at that time. Since the fall, she started to feel left hip pain. X-ray showed left femoral neck fracture it is displaced. When I saw this patient in the ER, she denied headache, dizziness, chest pain, shortness of breath, nausea, vomiting, a bdominal pain, or dysuria. No change in vision. 08/15 Patient does not have any new complaints. Pain is controlled Patient underwent Left hip mar arthroplasty by Dr. Sales on 08/15/2008/16 Patient still complains of pain which is not well controlled. Will increase pain medication. Blood pressure is better controlled after amlodipine was increased to 7.5 daily Placement 08/17 Pt still complains of pain. Otherwise she is fine. Denies fever/chills. Dr. Sales cleared to discharge her to SNF. 08/18 When I saw this patient this morning, I asked her if she has a medical complaints. She replied "a lot". She stated that her right hip pain. I checked her right hip -there was no abnormality. No redness. No tenderness. Continue monitor Temperature 99.2, WBC 12.2 which was a 10.7, creatinine 0.6 -blood culture, urinalysis 08/19 She still complains of some pain from left hip. She has been having mild fever for the past two days. WBC mild elevated. CXR - Possible developing small vague right midlung infiltrate. Short term abv was started today 08/20-patient continues to feel fatigued and weak and dizzy every time she attempts to get out of bed. Ongoing PT OT. Postop day 4. Currently on room air. Mid leg infiltrate currently on antibiotic coverage. Echocardiogram/MRI brain/Doppler carotid and vertebrobasilar system and orthostatics ordered to rule out cause of dizziness. History of aortic stenosis. If worsening on echo will require intervention due to recurrent falls and persistent presyncope and high risk injury. Hold discharge until further evaluation Constitutional Vitals: Vital Signs Temp Pulse Resp BP Pulse Ox 97.0 F 57 L 18 124/76 98 08/20/20 08:00 08/20/20 08:00 08/20/20 08:00 08/20/20 08:00 08/20/20 08:00 Period Temp Pulse Resp BP Sys/Wren Pulse Ox Last 24 Hr 97.0 F-98.3 F 57-64 - 112-129/64-76 95-99 Intake and Output 08/19/20 08/20/20 08/20/20 21:59 05:59 13:59 Intake Total 240 800 360 Output Total 500 Balance -260 800 360 Weight 49.487 kg Anxious Appears fatigued lethargic Nonlabored breathing No lymphedema Intake & Output: Intake & Output 08/19/20 08/20/20 08/20/20 21:59 05:59 13:59 Intake Total 240 800 360 Output Total 500 Balance -260 800 360 Weight 49.487 kg Intake: Oral 240 800 360 Output: Void Amount 500 Other: Meal Dinner Nourishment/Supplement Percent of Meal Consumed 75% 100% Feeding Ability Independent OBJ DATA Labs CBC & Chem 7: 08/20/20 06:06 08/20/20 06:06 Labs: Abnormal Lab Results 08/20/20 08/20/20 08/19/20 06:06 06:06 05:33 WBC RBC 3.51 L Hgb 10.1 L Hct 31.7 L MCHC Neut % (Auto) 80.0 H Lymph % (Auto) 10.7 L Lymph # (Auto) 0.99 L [place] # (Auto) Absolute Neutrophils Glucose 106 H Total Protein 5.5 L Albumin 2.8 L 2.7 L Albumin/Globulin Ratio 0.8 L Urine Protein Urine Ketones Ur Leukocyte Esterase Urine RBC Urine WBC Hyaline Casts Urine Mucus 08/19/20 08/18/20 08/18/20 05:33 11:21 06:11 WBC 11.7 H RBC 3.74 L Hgb 10.8 L Hct 35.0 L MCHC 30.9 L Neut % (Auto) Lymph % (Auto) 12.5 L Lymph # (Auto) 1.46 L [place] # (Auto) 1.15 H Absolute Neutrophils 8.76 H Glucose 108 H Total Protein 5.6 L Albumin 2.8 L Albumin/Globulin Ratio Urine Protein 30 A Urine Ketones 20 A Ur Leukocyte Esterase 75 A Urine RBC 4 H Urine WBC 12 H Hyaline Casts 36 H Urine Mucus Many A 08/18/20 06:11 WBC 12.2 H RBC 3.70 L Hgb 10.9 L Hct 34.2 L MCHC Neut % (Auto) Lymph % (Auto) 9.8 L Lymph # (Auto) 1.19 L [place] # (Auto) 1.31 H Absolute Neutrophils 9.43 H Glucose Total Protein Albumin Albumin/Globulin Ratio Urine Protein Urine Ketones Ur Leukocyte Esterase Urine RBC Urine WBC Hyaline Casts Urine Mucus Meds: Medications Acetaminophen (Tylenol) 650 mg PO Q6HP PRN; Protocol PRN Reason: Per Pain Protocol/Fever > 101 Last Admin: 08/17/20 08:33 Dose: 650 mg Documented by: Hydrocodone Bitart/Acetaminophen ([place] 7.5/325mg) 1 tab PO Q6HP PRN; Protocol PRN Reason: Per Pain Protocol Last Admin: 08/20/20 04:49 Dose: 1 tab Documented by: Amlodipine Besylate (Norvasc) 7.5 mg PO QDAY [facility] Last Admin: 08/20/20 10:09 Dose: 7.5 mg Documented by: Bisacodyl (Dulcolax) 10 mg HI Q2-3DAYS PRN PRN Reason: Constipation Docusate Sodium (Colace) 100 mg PO BID [facility] Last Admin: 08/20/20 10:08 Dose: Not Given Documented by: Enoxaparin Sodium (Lovenox) 40 mg SQ DAILY [facility] Last Admin: 08/20/20 10:09 Dose: 40 mg Documented by: Hydralazine HCl (Apresoline) 10 mg IV Q4-6HP PRN PRN Reason: Hypertension Hydromorphone HCl (Dilaudid) 1 mg IV Q3HP PRN; Protocol PRN Reason: Per Pain Protocol Last Admin: 08/20/20 01:36 Dose: 1 mg Documented by: Levofloxacin (Levaquin) 750 mg in 150 mls @ 100 mls/hr IV Q48H [facility] Last Admin: 08/19/20 10:16 Dose: 100 mls/hr Documented by: Lisinopril (Zestril) 20 mg PO BID [facility] Last Admin: 08/20/20 10:09 Dose: 20 mg Documented by: Magnesium Hydroxide (Milk Of Magnesia) 30 ml PO BIDP PRN PRN Reason: Constipation Methocarbamol (Robaxin) 750 mg PO Q6HP PRN PRN Reason: Muscle Spasm Last Admin: 08/20/20 00:02 Dose: 750 mg Documented by: Polyethylene Glycol (Miralax) 17 gm PO DAILYP PRN PRN Reason: Constipation Last Admin: 08/17/20 14:13 Dose: 17 gm Documented by: Prochlorperazine (Compazine) 5 mg IV Q6HP PRN PRN Reason: Nausea And Vomiting Last Admin: 08/15/20 06:17 Dose: 5 mg Documented by: Senna (Senokot) 2 tab PO HS [facility] Last Admin: 08/19/20 20:16 Dose: Not Given Documented by: Sodium Biphosphate/Sodium Phosphate (Fleets Adult) 1 dose HI Q3-4DAYS PRN PRN Reason: Constipation Sodium Chloride (Saline Flush) 10 ml IV Q8 [facility] Last Admin: 08/20/20 04:49 Dose: 10 ml Documented by: Temazepam (Restoril) 15 mg PO HSP PRN PRN Reason: Insomnia Throat Lozenges (Cepacol) 1 lozenge PO PRN PRN PRN Reason: Sore Throat A/P Narrative A/P Narrative: * Left femur fracture postop day 4. Managed per orthopedics. On DVT prophylaxis per orthopedics on aspirin * Recurrent falls/dizziness/presyncope. History of aortic stenosis. However rule out CVA/posterior circulation insufficiency/orthostatics. Echocardiogram/MRI brain/carotid VB system * Right-sided pneumonia on antibiotic coverage on Levaquin. * Poorly controlled hypertension continue amlodipine/lisinopril/prn hydralazine * History of -repeat echocardiogram as likely symptomatic due to frequent dizziness Plan: * Antibiotic coverage * MRI brain/carotid Doppler/echocardiogram/orthostatics * Postop care per orthopedics * DC vancomycin * Case management coordinate SNF transfer likely in 24 to 48 hours pending dizziness evaluation Time Spent With Patient Time: Total time spent is greater than 50% in coordination of care (as documented) at patient's floor/unit and/or counseling patient: QUALITY VTE Deep Vein Thrombosis/Pulmonary Embolism Present on Admission: No
[2020-08-20] MEDS: VANCOMYCIN 750 MG in 0.9 % SODIUM CHLORIDE 250 ML IV SCH (14:06)
[2020-08-20] MEDS: SENNOSIDES 1 TABLET PO SCH (21:30)
[2020-08-21] MEDS: HYDROCODONE/APAP 7.5/325MG TABLET PO PRN ×2 (05:07→11:48)
[2020-08-21 07:56] LABS: Basophils # (Auto) 0.02 K/mcL (0.00-0.20); Basophils % (Auto) 0.2 % (0.0-2.0); Eosinophils # (Auto) 0.27 K/mcL (0.00-0.70); Eosinophils % (Auto) 3.2 % (0.0-7.0); Hematocrit 31.1 % (36.0-48.0); Hemoglobin 9.8 g/dL (12.0-15.0); Lymphocytes % (Auto) 18.7 % (15.0-49.0); Mean Cell Volume 91.5 fL (80.0-100.0); Mean Corpuscular HGB Conc 31.5 g/dL (31.0-36.0); Mean Platelet Volume 9.4 fL (7.4-10.4); Monocytes # (Auto) 1.14 K/mcL (0.10-0.90); Monocytes % (Auto) 13.3 % (1.0-12.0); Neutrophils % (Auto) 64.6 % (38.0-78.0); Platelet Count 407 K/mcL (140-440); Red Cell Distribution Width 14.5 % (11.5-14.5); WBC 8.5 K/mcL (4.5-11.0)
--- NOTE | 2020-08-21 08:28 | Ultrasound Report ---
CLINICAL INFORMATION: Dizziness COMPARISON: None. TECHNIQUE: Carotid arteries were imaged in sagittal and transverse planes using 5 mHz linear probe: Doppler, color, and 2D. FINDINGS: See worksheet by the technologist for velocities in PACS Please correlate with CTA CT Angiography or MRA MR Angiography if surgery is contemplated. A moderate amount of mixed plaque is present in the distal common carotids bilaterally extending through the carotid bifurcations into the internal and external carotids. There is no apparent ulceration and there is no occlusion. Doppler shows normal flow velocities in the common, internal and external carotids, without evidence of stenosis. Antegrade flow is present in both vertebral arteries. IMPRESSION: Atherosclerotic disease in both carotid arteries and no evidence of stenosis or thrombosis Interpreted and Authenticated by: Chucho Workman 08/21/20
[2020-08-21 08:38] LABS: ALT/SGPT 14 U/L (<40); AST/SGOT 23 U/L (<32); Albumin 2.7 gm/dL (3.2-5.2); Alkaline Phosphatase 84 U/L (39-117); Bilirubin,Direct < 0.2 mg/dL (<0.3); Bilirubin,Total 0.3 mg/dL (0.1-1.0); Blood Urea Nitrogen 14 mg/dL (8-23); Calcium 8.4 mg/dL (8.6-10.4); Carbon Dioxide 27 mmol/L (22-30); Chloride 98 mmol/L (96-108); Globulin 2.6 gm/dL (2.2-3.7); Glomerular Filtration Rate 81; Glucose 99 mg/dL (70-105); Lactate Dehydrogenase 174 U/L (135-225); Phosphorous 3.7 mg/dL (2.5-4.5); Triglycerides 91 mg/dL (<150); Uric Acid 4.1 mg/dL (2.5-8.0)
[2020-08-21] MEDS ORDERED: LEVOFLOXACIN 750 MG TABLET PO SCH (09:00)
[2020-08-21] MEDS: amLODIPine 5 MG TABLET PO SCH ×2 (10:24→10:27)
[2020-08-21] MEDS: DOCUSATE SODIUM 100 MG CAPSULE PO SCH (10:25)
[2020-08-21] MEDS: ENOXAPARIN 40 MG/0.4 ML SYRINGE SQ SCH (10:25)
[2020-08-21] MEDS: 0.9 % SODIUM CHLORIDE 10 ML SYRINGE IV SCH (10:25)
[2020-08-21] MEDS: LISINOPRIL 20 MG TABLET PO SCH ×2 (10:25→10:27)
--- NOTE | 2020-08-21 10:55 | Discharge Summary ---
Discharge Provider Provider Patient information: Note initiated : 08/21/20 at 10:50 am Service Date, if different from initiated Date: [] Patient: Rosaline Stuart 89 y/o F admitted on 08/14/20 for hip fracture. Discharge diagnosis * Left femur fracture postop day 5. Managed per orthopedics. Recovering well. Transferring to SNF for continued posthospitalization rehab. On DVT prophylaxis per orthopedics on aspirin. Continue outpatient follow-up with orthopedics * Recurrent falls/dizziness/presyncope. History of aortic stenosis. No evidence of CVA on recent MRI brain. No evidence of posterior circulation insufficiency/orthostatics. Echocardiogram results pending. PCP to follow-up on echo. If evidence of critical aortic stenosis will require cardiology follow-up for evaluation * Right-sided pneumonia clinically improved. Continue additional 3 days Levaqu in * Hypertension now well controlled on amlodipine/lisinopril/prn hydralazine * History of -echocardiogram ordered. Cc copy of echocardiogram results to primary care physician * Adjustment disorder-nonsuicidal but feels this motivated. Start low-dose SSRI Brief hospital course Ms. Stuart is a 89 year old F with a past medical history of high blood pressure and history of aortic stenosis who was transferred to the ER from [facility] due to left leg pain. As per patient, who had a mechanical fall at home 6 days ago. He denies loss of consciousness. He did not have injury to her head. Denies nausea, vomiting, or headache at that time. Since the fall, she started to feel left hip pain. X-ray showed left femoral neck fracture it is displaced. When I saw this patient in the ER, she denied headache, dizziness, chest pain, shortness of breath, nausea, vomiting, abdominal pain, or dysuria. No change in vision. 08/15 Patient does not have any new complaints. Pain is controlled Patient underwent Left hip mar arthroplasty by Dr. Sales on 08/15/2008/16 Patient still complains of pain which is not well controlled. Will increase pain medication. Blood pressure is better controlled after amlodipine was increased to 7.5 daily Placement 08/17 Pt still complains of pain. Otherwise she is fine. Denies fever/chills. Dr. Sales cleared to discharge her to SNF. 08/18 When I saw this patient this morning, I asked her if she has a medical complaints. She replied "a lot". She stated that her right hip pain. I checked her right hip -there was no abnormality. No redness. No tenderness. Continue monitor Temperature 99.2, WBC 12.2 which was a 10.7, creatinine 0.6 -blood culture, urinalysis 08/19 She still complains of some pain from left hip. She has been having mild fever for the past two days. WBC mild elevated. CXR - Possible developing small vague right midlung infiltrate. Short term abv was started today 08/20-patient continues to feel fatigued and weak and dizzy every time she attempts to get out of bed. Ongoing PT OT. Postop day 4. Currently on room air. Mid leg infiltrate currently on antibiotic coverage. Echocardiogram/MRI brain/Doppler carotid and vertebrobasilar system and orthostatics ordered to rule out cause of dizziness. History of aortic stenosis. If worsening on echo will require intervention due to recurrent falls and persistent presyncope and high risk injury. Hold discharge until further evaluation 08/21-patient doing well postoperatively. Ongoing physical therapy. Appears apathetic. Started low-dose SSRI. Tolerating therapies and diet. Transferring to SNF for continued posthospitalization rehab. Date of admission: 08/14/20 20:51 Discharge date: 08/21/20 Primary care physician: Mian Richmond Consults: 08/14/20 Consult to Physician [CONS] Stat Comment: Consulting Provider: Mary Cruz Reason For Exam: Physician to Consult 08/14/20 20:33 Consult to Physician [CONS] Routine Comment: Consulting Provider: Jake Sales Reason For Exam: Physician to Consult Discharge Meds Discharge Medications Home Medications ascorbic acid (vitamin C) 1 tab PO QDAY 08/14/20 [History Confirmed 08/14/20 Last Taken 08/14/20 09:00] lisinopril 20 mg PO BID 08/14/20 [History Confirmed 08/14/20 Last Taken 08/14/20 09:00] hydrocodone-acetaminophen [Seltzer] 1 - 2 tab PO Q4-6HP PRN #50 tab 08/15/20 [Rx Last Taken Unknown] aspirin [Ecotrin] 325 mg PO BID #60 tab 08/16/20 [Rx Last Taken Unknown] docusate sodium 100 mg PO BID #60 cap 08/16/20 [Rx Last Taken Unknown] hydrocodone-acetaminophen 1 - 2 tab PO Q4HP PRN #60 tab 08/16/20 [Rx Last Taken Unknown] amlodipine 7.5 mg PO QDAY #30 tab 08/21/20 [Rx Last Taken Unknown] levofloxacin 750 mg PO Q48H #2 tab 08/21/20 [Rx Last Taken Unknown] sertraline 25 mg PO QDAY #30 tab 08/21/20 [Rx Last Taken Unknown] COURSE Hospital Course Hospital course: . Discharge diagnosis: . Time Spent with Patient Time attestation: Total time spent providing and/or coordinating discharge services: EXAM Constitutional Vitals: Temp Pulse Resp BP Pulse Ox 97.7 F 59 L 18 116/67 99 08/21/20 08:00 08/21/20 08:00 08/21/20 08:00 08/21/20 08:00 08/21/20 08:00 Discharge Data Data Completed and Pending Labs on day of discharge: Labs from last 24 hours 08/21/20 08/21/20 08/21/20 07:57 05:52 05:52 WBC 8.5 RBC 3.40 L Hgb 9.8 L Hct 31.1 L MCV 91.5 MCH 28.8 MCHC 31.5 RDW 14.5 Plt Count 407 MPV 9.4 Neut % (Auto) 64.6 Lymph % (Auto) 18.7 [place] % (Auto) 13.3 H Eos % (Auto) 3.2 Baso % (Auto) 0.2 Lymph # (Auto) 1.60 [place] # (Auto) 1.14 H Eos # (Auto) 0.27 Baso # (Auto) 0.02 Absolute Neutrophils 5.51 Sodium 138 Potassium 3.8 Chloride 98 Carbon Dioxide 27 Anion Gap 13.0 BUN 14 Creatinine 0.6 GFR Calculation 81 Glucose 99 Uric Acid 4.1 Calcium 8.4 L Phosphorus 3.7 Magnesium 2.3 Total Bilirubin 0.3 Direct Bilirubin < 0.2 GGT 36 AST 23 ALT 14 Alkaline Phosphatase 84 Lactate Dehydrogenase 174 Total Protein 5.3 L Albumin 2.7 L Globulin 2.6 Albumin/Globulin Ratio 1.0 Triglycerides 91 Vancomycin Trough < 4.0 L Preliminary micro results at discharge 08/18/20 10:30 Blood Culture - Preliminary Blood 08/17/20 10:30 Gram Stain - Preliminary Hip - Left Anaerobic Culture - Preliminary 08/20/20 19:17 Gram Stain - Preliminary Sputum - Induced Sputum Culture - Preliminary 08/18/20 10:45 Blood Culture - Preliminary Blood Discharge Plan Patient/Caregiver Discharge Instructions Activity: ambulate only with your walker, as per physical therapy and other Diet: Regular Diet Activity Restrictions/Additional Instructions: 50% weight bearing x 6 weeks, avoid abductive abduction Prescriptions: New hydrocodone-acetaminophen [Seltzer] 7.5-325 mg tablet 1 - 2 tab PO Q4-6HP PRN (Reason: pain) Qty: 50 RF: 0 hydrocodone-acetaminophen 7.5-325 mg Tablet 1 - 2 tab PO Q4HP PRN (Reason: Per Pain Protocol) Qty: 60 RF: 0 docusate sodium 100 mg Capsule 100 mg PO BID Qty: 60 RF: 0 aspirin [Ecotrin] 325 mg tablet,delayed release (DR/EC) 325 mg PO BID Qty: 60 RF: 0 amlodipine 5 mg Tablet 7.5 mg PO QDAY Qty: 30 RF: 0 levofloxacin 750 mg Tablet 750 mg PO Q48H Qty: 2 RF: 0 sertraline 25 mg tablet 25 mg PO QDAY Qty: 30 RF: 0 Continued lisinopril 20 mg tablet 20 mg PO BID RF: 0 ascorbic acid (vitamin C) 1 tab PO QDAY RF: 0 Discontinued amlodipine 5 mg tablet 5 mg PO HS RF: 0 Other Ambulatory Orders: Physical Therapy DC - NAZANIN (Routine) Location: None Selected Ordered By: Otoniel Le Toilet Riser Discharge Order (ONCE) Location: None Selected Ordered By: Otoniel Le Walker (ONCE) Location: None Selected Ordered By: Otoniel Le Follow Up Plan Follow up with: Jake Sales MD [Physician] - Mian Richmond PA-C [Primary Care Provider] - Patient Disposition: Xfer SNF Prognosis: Good Rehab Potential: Good I certify that the patient requires SNF services: Yes Overall status at discharge: patient is progressing back to baseline Discharge Orders: Discharge Order (Routine); Ordered 08/18/20 Ordered By: Otoniel Le QUALITY VTE Deep Vein Thrombosis/Pulmonary Embolism Present on Admission: No
== END 2020-08-21 12:00 | DRG 521 ==
LOC: ED 19:24 → MEDSUR 20:51
PROVIDERS: ADMIT Internal Medicine; ATTEND Internal Medicine